=== PATIENT | male | born 1945 | race Caucasian/White ===

== ENCOUNTER 2020-05-23 10:00 | Outpatient (REF) | payer MEDICARE, SELFPAY ==
[2020-05-23 13:37] LABS: MANUAL DIFF FLAG NO
[2020-05-23 13:41] LABS: Basophils Percent Auto 0.4 % (0-2); Eosinophils Absolute Auto 0.3 X10*3/uL (0.0-0.4); Eosinophils Percent Auto 3.4 % (0-4); Hemoglobin 11.7 g/dl (14.0-18.0); Imm Gran Abs Auto 0.04 X10*3/uL (0.00-0.03); Imm Gran Pct Auto 0.5 % (0.0-0.4); Lymphocytes Absolute Auto 1.6 X10*3/uL (1.2-4.9); Lymphocytes Percent Auto 19.7 % (20-40); Mean Corpuscular HGB Conc 31.6 g/dl (31.0-36.0); Mean Corpuscular Hemoglobin 30.2 pg (27.0-33.0); Mean Corpuscular Volume 95.4 fL (80-98); Mean Platelet Volume 10.2 fL (9.4-12.4); Monocytes Absolute Auto 0.8 X10*3/uL (0.1-1.2); Monocytes Percent Auto 10.3 % (2-11); Neutrophils Absolute Auto 5.2 X10*3/uL (2.0-8.3); Neutrophils Percent Auto 65.7 % (45-73); Platelet Count 236 X10*3/uL (160-400); Red Blood Count 3.88 X10*6/uL (4.60-5.80); Red Cell Distribution Width 12.8 % (11.0-16.0)
[2020-05-23 13:44] LABS: Glucose Urine UA NEG (NEG); Leukocyte Esterase Urine NEG (NEG); Nitrite Urine NEG (NEG); Urine Blood NEG (NEG); Urine Ketones NEG (NEG); Urine Protein NEG (NEG-TRACE)
[2020-05-23 13:45] LABS: Appearance Urine CLEAR; Color Urine YELLOW
[2020-05-23 14:24] LABS: Alanine Aminotransferase 18 U/L (0-40); Albumin Level 4.1 g/dL (3.5-5.0); Alkaline Phosphatase 79 U/L (39-117); Anion Gap 13 (12-20); Aspartate Amino Transferase 16 U/L (5-37); Bilirubin Total < 0.2 mg/dL (0.0-1.0); Blood Urea Nitrogen 33 mg/dL (9-16); Calcium 9.1 mg/dL (8.4-10.2); Carbon Dioxide 23 mmol/L (22-29); Chloride 108 mmol/L (96-108); Cholesterol 154 mg/dL; Estimated Glomerular Filt Rate 46; Glucose Fasting 117 mg/dL (60-99); HDL Cholesterol 49 mg/dL; LDL Cholesterol Calculated 92 mg/dl; Potassium 5.1 mmol/l (3.3-5.1); Sodium 139 mmol/L (135-145); Total Protein 7.6 g/dL (6.5-8.0); Triglycerides 69 mg/dL
[2020-05-23 14:29] LABS: Prostate Specific Antigen Scr 0.74 ng/mL (<0.05-4.0)
== END 2020-05-23 10:01 | disposition home or self-care (01) ==
LOC: HO.10HDL 10:00
PROVIDERS: PCP Internal Medicine; Visit Provider Internal Medicine
DX: E78.00 Pure hypercholesterolemia, unspecified (principal); I12.9 Hypertensive chronic kidney disease with stage 1 through stage 4 chronic kidney disease, or unspecified chronic kidney disease; N18.9 Chronic kidney disease, unspecified; I48.0 Paroxysmal atrial fibrillation; I77.9 Disorder of arteries and arterioles, unspecified
CPT/HCPCS: 36415; 80053; 80061; 81003; 84153; 85025

== ENCOUNTER 2020-06-13 11:41 | Outpatient (REF) | payer MEDICARE, SELFPAY | END 2020-06-13 11:42 | disposition home or self-care (01) | LOC: HO.LAB 11:41 | PROVIDERS: Visit Provider Internal Medicine | DX: Z20.828 Contact with and (suspected) exposure to other viral communicable diseases (principal) | CPT/HCPCS: C9803; U0003 ==

== ENCOUNTER 2020-06-18 14:40 | Outpatient (REF) | payer MEDICARE, SELFPAY | END 2020-06-18 14:41 | disposition home or self-care (01) | LOC: HO.LNP 14:40 | PROVIDERS: Visit Provider Internal Medicine | DX: Z20.828 Contact with and (suspected) exposure to other viral communicable diseases (principal) | CPT/HCPCS: U0003 ==

== ENCOUNTER 2020-08-16 11:59 | Outpatient (REF) | payer MEDICARE, SELFPAY ==
[2020-08-16 12:58] LABS: MANUAL DIFF FLAG NO
[2020-08-16 13:04] LABS: Red Blood Count 4.07 X10*6/uL (4.60-5.80); White Blood Count 6.6 X10*3/uL (4.8-10.8)
[2020-08-16 13:05] LABS: Basophils Percent Auto 0.5 % (0-2); Eosinophils Absolute Auto 0.2 X10*3/uL (0.0-0.4); Eosinophils Percent Auto 3.5 % (0-4); Hematocrit 38.8 % (42-52); Hemoglobin 12.5 g/dl (14.0-18.0); Imm Gran Abs Auto 0.03 X10*3/uL (0.00-0.03); Imm Gran Pct Auto 0.5 % (0.0-0.4); Lymphocytes Absolute Auto 1.5 X10*3/uL (1.2-4.9); Lymphocytes Percent Auto 22.4 % (20-40); Mean Corpuscular HGB Conc 32.2 g/dl (31.0-36.0); Mean Corpuscular Hemoglobin 30.7 pg (27.0-33.0); Mean Corpuscular Volume 95.3 fL (80-98); Mean Platelet Volume 10.2 fL (9.4-12.4); Monocytes Absolute Auto 0.8 X10*3/uL (0.1-1.2); Monocytes Percent Auto 11.8 % (2-11); Neutrophils Absolute Auto 4.1 X10*3/uL (2.0-8.3); Neutrophils Percent Auto 61.3 % (45-73); Platelet Count 190 X10*3/uL (160-400); Red Cell Distribution Width 14.2 % (11.0-16.0)
[2020-08-16 13:32] LABS: Anion Gap 13 (12-20); Blood Urea Nitrogen 30 mg/dL (9-16); Calcium 8.7 mg/dL (8.4-10.2); Carbon Dioxide 22 mmol/L (22-29); Chloride 110 mmol/L (96-108); Estimated Glomerular Filt Rate 46; Glucose Random 106 mg/dL (60-115); Iron 76 mcg/dL (45-160); Percent Iron Saturation 27 % (15-50); Potassium 4.6 mmol/L (3.3-5.1); Sodium 140 mmol/L (135-145); Total Iron Binding Capacity 286 mcg/dL (228-428); Unsaturated Iron Binding 210 ug/dL
== END 2020-08-16 12:00 | disposition home or self-care (01) ==
LOC: HO.10HDL 11:59
PROVIDERS: Visit Provider Internal Medicine
DX: D64.9 Anemia, unspecified (principal); I73.9 Peripheral vascular disease, unspecified; I12.9 Hypertensive chronic kidney disease with stage 1 through stage 4 chronic kidney disease, or unspecified chronic kidney disease; N18.9 Chronic kidney disease, unspecified; K21.9 Gastro-esophageal reflux disease without esophagitis
CPT/HCPCS: 36415; 80048; 83540; 85025

== ENCOUNTER 2020-08-23 10:12 | Outpatient (REF) | payer MEDICARE, SELFPAY ==
[2020-08-23 13:54] LABS: MANUAL DIFF FLAG NO
[2020-08-23 14:03] LABS: Basophils Absolute Auto 0.1 X10*3/uL (0.0-0.2); Basophils Percent Auto 0.7 % (0-2); Eosinophils Absolute Auto 0.2 X10*3/uL (0.0-0.4); Eosinophils Percent Auto 3.4 % (0-4); Hematocrit 38.8 % (42-52); Hemoglobin 12.4 g/dl (14.0-18.0); Imm Gran Abs Auto 0.03 X10*3/uL (0.00-0.03); Imm Gran Pct Auto 0.4 % (0.0-0.4); Lymphocytes Absolute Auto 1.6 X10*3/uL (1.2-4.9); Lymphocytes Percent Auto 24.5 % (20-40); Mean Corpuscular Hemoglobin 30.2 pg (27.0-33.0); Mean Corpuscular Volume 94.6 fL (80-98); Mean Platelet Volume 10.8 fL (9.4-12.4); Monocytes Absolute Auto 0.8 X10*3/uL (0.1-1.2); Monocytes Percent Auto 12.6 % (2-11); Neutrophils Absolute Auto 3.9 X10*3/uL (2.0-8.3); Neutrophils Percent Auto 58.4 % (45-73); Platelet Count 184 X10*3/uL (160-400); Red Cell Distribution Width 13.9 % (11.0-16.0); White Blood Count 6.7 X10*3/uL (4.8-10.8)
[2020-08-23 14:06] LABS: Estimated Average Glucose 111 mg/dL; Hemoglobin A1c % 5.5 %
[2020-08-23 14:26] LABS: Anion Gap 12 (12-20); Blood Urea Nitrogen 34 mg/dL (9-16); Calcium 9.1 mg/dL (8.4-10.2); Carbon Dioxide 24 mmol/L (22-29); Chloride 108 mmol/L (96-108); Estimated Glomerular Filt Rate 45; Glucose Random 86 mg/dL (60-115); Iron 74 mcg/dL (45-160); Percent Iron Saturation 25 % (15-50); Potassium 4.8 mmol/L (3.3-5.1); Sodium 139 mmol/L (135-145); Total Iron Binding Capacity 292 mcg/dL (228-428); Unsaturated Iron Binding 218 ug/dL
== END 2020-08-23 10:13 | disposition home or self-care (01) ==
LOC: HO.10HDL 10:12
PROVIDERS: Visit Provider Internal Medicine
DX: I10 Essential (primary) hypertension (principal); N18.9 Chronic kidney disease, unspecified; D64.9 Anemia, unspecified; R73.03 Prediabetes
CPT/HCPCS: 36415; 80048; 83036; 83540; 85025

== ENCOUNTER 2020-12-14 12:47 | Outpatient (REF) | payer MEDICARE, SELFPAY ==
--- NOTE | ~2020-12-14 | XR_ITS ---
EXAMINATION: XR SHOULDER, LEFT CLINICAL INFORMATION: Left shoulder pain. COMPARISON: None TECHNIQUE: AP external rotation, Grashey, scapular Y, and axillary views of the left shoulder. FINDINGS: [id number] osteoarthritis of the acromioclavicular joint manifested by subchondral cyst and some capsular calcification or ossification. Glenohumeral joint normal. Surrounding bone and soft tissues unremarkable. XR/XR shoulder LT min 2V IMPRESSION: Mild degenerative changes of the acromioclavicular joint.
[2020-12-14 13:30] LABS: MANUAL DIFF FLAG NO
[2020-12-14 13:36] LABS: Basophils Percent Auto 0.4 % (0-2); Eosinophils Absolute Auto 0.2 X10*3/uL (0.0-0.4); Eosinophils Percent Auto 2.2 % (0-4); Hematocrit 38.2 % (42-52); Hemoglobin 12.4 g/dl (14.0-18.0); Imm Gran Abs Auto 0.02 X10*3/uL (0.00-0.03); Imm Gran Pct Auto 0.3 % (0.0-0.4); Lymphocytes Absolute Auto 1.5 X10*3/uL (1.2-4.9); Lymphocytes Percent Auto 21.8 % (20-40); Mean Corpuscular HGB Conc 32.5 g/dl (31.0-36.0); Mean Corpuscular Hemoglobin 30.5 pg (27.0-33.0); Mean Corpuscular Volume 93.9 fL (80-98); Monocytes Absolute Auto 0.8 X10*3/uL (0.1-1.2); Monocytes Percent Auto 11.8 % (2-11); Neutrophils Absolute Auto 4.3 X10*3/uL (2.0-8.3); Neutrophils Percent Auto 63.5 % (45-73); Platelet Count 188 X10*3/uL (160-400); Red Blood Count 4.07 X10*6/uL (4.60-5.80); Red Cell Distribution Width 12.9 % (11.0-16.0); White Blood Count 6.8 X10*3/uL (4.8-10.8)
[2020-12-14 13:51] LABS: Alanine Aminotransferase 14 U/L (0-40); Albumin Level 4.3 g/dL (3.5-5.0); Alkaline Phosphatase 75 U/L (39-117); Anion Gap 15 (12-20); Aspartate Amino Transferase 18 U/L (5-37); Bilirubin Total 0.7 mg/dL (0.0-1.0); Blood Urea Nitrogen 23 mg/dL (9-16); Calcium 9.7 mg/dL (8.4-10.2); Carbon Dioxide 24 mmol/L (22-29); Chloride 108 mmol/L (96-108); Estimated Glomerular Filt Rate 48; Glucose Random 124 mg/dL (60-115); Iron 65 mcg/dL (45-160); Percent Iron Saturation 22 % (15-50); Potassium 4.8 mmol/L (3.3-5.1); Sodium 142 mmol/L (135-145); Total Iron Binding Capacity 293 mcg/dL (228-428); Total Protein 8.1 g/dL (6.5-8.0); Unsaturated Iron Binding 228 ug/dL
== END 2020-12-14 12:48 | disposition home or self-care (01) ==
LOC: HO.LAB 12:47
PROVIDERS: PCP Internal Medicine; Visit Provider Internal Medicine
DX: M25.512 Pain in left shoulder (principal); D64.9 Anemia, unspecified; I73.9 Peripheral vascular disease, unspecified; I12.9 Hypertensive chronic kidney disease with stage 1 through stage 4 chronic kidney disease, or unspecified chronic kidney disease; N18.9 Chronic kidney disease, unspecified
CPT/HCPCS: 36415; 73030; 80053; 83540; 85025

== ENCOUNTER 2021-03-15 13:55 | Outpatient (REF) | payer MEDICARE, SELFPAY ==
[2021-03-15 15:11] LABS: Anion Gap 13 (12-20); Blood Urea Nitrogen 23 mg/dL (9-16); C Reactive Protein 5.97 mg/dL (< or = 0.50); Calcium 10.2 mg/dL (8.4-10.2); Carbon Dioxide 25 mmol/L (22-29); Chloride 107 mmol/L (96-108); Estimated Glomerular Filt Rate 54; Glucose Random 103 mg/dL (60-115); Potassium 5.1 mmol/L (3.3-5.1); Sodium 140 mmol/L (135-145)
[2021-03-17 05:32] LABS: Lyme Blot 8.14 index
[2021-03-17 13:01] LABS: Lyme Abs Screen POSITIVE
[2021-03-18 19:32] LABS: 18 KD (IgG) Band REACTIVE; 23 KD (IgG) Band REACTIVE; 23 KD (IgM) Band REACTIVE; 28 KD (IgG) Band REACTIVE; 30 KD (IgG) Band REACTIVE; 39 KD (IgM) Band NON-REACTIVE; 41 KD (IgM) Band REACTIVE; 45 KD (IgG) Band REACTIVE; 58 KD (IgG) Band REACTIVE; 66 KD (IgG) Band REACTIVE; 93 KD (IgG) Band REACTIVE; Lyme IgG Blot Interp POSITIVE (NEGATIVE); Lyme IgM Blot Interp POSITIVE (NEGATIVE)
== END 2021-03-15 13:56 | disposition home or self-care (01) ==
LOC: HO.LAB 13:55
PROVIDERS: PCP Internal Medicine; Visit Provider Internal Medicine
DX: I12.9 Hypertensive chronic kidney disease with stage 1 through stage 4 chronic kidney disease, or unspecified chronic kidney disease (principal); N18.9 Chronic kidney disease, unspecified; T14.8XXA Other injury of unspecified body region, initial encounter; W57.XXXA Bitten or stung by nonvenomous insect and other nonvenomous arthropods, initial encounter; Y93.9 Activity, unspecified; Y92.9 Unspecified place or not applicable; Y99.9 Unspecified external cause status
CPT/HCPCS: 36415; 80048; 86140; 86617; 86618

== ENCOUNTER 2021-04-24 13:30 | Outpatient (REF) | payer MEDICARE, SELFPAY ==
--- NOTE | ~2021-04-24 | XR_ITS ---
EXAMINATION: XR LEFT KNEE XR RIGHT KNEE CLINICAL INFORMATION: Left knee pain. COMPARISON: None TECHNIQUE: Upright frontal views of both knees and lateral and patellofemoral views of the left knee were obtained. FINDINGS: Right knee: The single upright frontal view of the right knee shows satisfactory bony alignment, evidence of chondrocalcinosis and no evidence of any osteophyte formation. Extensive atherosclerotic femoral popliteal and tibial artery is present. Otherwise soft tissues are unremarkable. Left knee: 3 views of the left knee shows satisfactory bony alignment and intact cortices. Minimal asymmetric decreased joint space is noted at the medial compartment, consistent with mild osteoarthrosis. Small joint effusion. Patella femoral joint is unremarkable. Significant atherosclerotic calcific disease is present involving the femoral popliteal and tibial arteries. XR/XR knee LT 2V IMPRESSION: 1. The single upright frontal view of the right knee shows chondrocalcinosis. 2. 3 views of the left knee shows mild medial compartmental osteoarthrosis and small joint effusion. 2. Evidence of significant calcific atherosclerotic disease involving bilateral femoral popliteal and tibial arteries.
--- NOTE | ~2021-04-24 | XR_ITS ---
EXAMINATION: XR LEFT KNEE XR RIGHT KNEE CLINICAL INFORMATION: Left knee pain. COMPARISON: None TECHNIQUE: Upright frontal views of both knees and lateral and patellofemoral views of the left knee were obtained. FINDINGS: Right knee: The single upright frontal view of the right knee shows satisfactory bony alignment, evidence of chondrocalcinosis and no evidence of any osteophyte formation. Extensive atherosclerotic femoral popliteal and tibial artery is present. Otherwise soft tissues are unremarkable. Left knee: 3 views of the left knee shows satisfactory bony alignment and intact cortices. Minimal asymmetric decreased joint space is noted at the medial compartment, consistent with mild osteoarthrosis. Small joint effusion. Patella femoral joint is unremarkable. Significant atherosclerotic calcific disease is present involving the femoral popliteal and tibial arteries. XR/XR knee standing BI IMPRESSION: 1. The single upright frontal view of the right knee shows chondrocalcinosis. 2. 3 views of the left knee shows mild medial compartmental osteoarthrosis and small joint effusion. 2. Evidence of significant calcific atherosclerotic disease involving bilateral femoral popliteal and tibial arteries.
== END 2021-04-24 13:31 | disposition home or self-care (01) ==
LOC: HO.HOSX 13:30
PROVIDERS: Visit Provider Physician Assistant
DX: M17.12 Unilateral primary osteoarthritis, left knee (principal); M25.561 Pain in right knee
CPT/HCPCS: 20610; 73560; 73565; 99202; J1040

== ENCOUNTER 2021-06-10 10:38 | Outpatient (REF) | payer MEDICARE, SELFPAY ==
[2021-06-10 11:42] LABS: Influenza A PCR NEGATIVE (Negative); Influenza B PCR NEGATIVE (Negative); Resp Syncy Virus RNA Qual PCR NEGATIVE (Negative); SARS COV2 PCR INHOUSE NEGATIVE (Negative)
== END 2021-06-10 10:39 | disposition home or self-care (01) ==
LOC: HO.LNP 10:38
PROVIDERS: Visit Provider Internal Medicine
DX: Z20.822 Contact with and (suspected) exposure to COVID-19 (principal)
CPT/HCPCS: 0241U

== ENCOUNTER 2022-05-06 11:28 | Outpatient (REF) | payer MEDICARE, SELFPAY ==
[2022-05-06 13:32] LABS: MANUAL DIFF FLAG NO
[2022-05-06 13:34] LABS: Basophils Absolute Auto 0.1 X10*3/uL (0.0-0.2); Basophils Percent Auto 0.9 % (0-2); Eosinophils Absolute Auto 0.3 X10*3/uL (0.0-0.4); Eosinophils Percent Auto 4.6 % (0-4); Hematocrit 38.8 % (42.0-52.0); Hemoglobin 12.5 g/dl (14.0-18.0); Imm Gran Abs Auto 0.02 X10*3/uL (0.00-0.03); Imm Gran Pct Auto 0.3 % (0.0-0.4); Lymphocytes Percent Auto 30.2 % (20-40); Mean Corpuscular HGB Conc 32.2 g/dl (31.0-36.0); Mean Corpuscular Hemoglobin 30.4 pg (27.0-33.0); Mean Corpuscular Volume 94.4 fL (80.0-98.0); Mean Platelet Volume 10.6 fL (9.4-12.4); Monocytes Absolute Auto 0.8 X10*3/uL (0.1-1.2); Monocytes Percent Auto 11.6 % (2-11); Neutrophils Absolute Auto 3.4 x10*3/uL (2.0-8.3); Neutrophils Percent Auto 52.4 % (45-73); Platelet Count 199 X10*3/uL (160-400); Red Blood Count 4.11 X10*6/uL (4.60-5.80); Red Cell Distribution Width 12.7 % (11.0-16.0); White Blood Count 6.5 X10*3/uL (4.8-10.8)
[2022-05-06 14:09] LABS: Alanine Aminotransferase 26 U/L (0-40); Albumin Level 4.1 g/dL (3.5-5.0); Alkaline Phosphatase 63 U/L (39-117); Anion Gap 13 (12-20); Aspartate Amino Transferase 21 U/L (5-37); Bilirubin Total 0.6 mg/dL (0.0-1.0); Blood Urea Nitrogen 24 mg/dL (9-16); Calcium 9.3 mg/dL (8.4-10.2); Carbon Dioxide 26 mmol/L (22-29); Chloride 107 mmol/L (96-108); Cholesterol 150 mg/dL; Estimated Glomerular Filt Rate 49; Glucose Fasting 95 mg/dL (60-99); HDL Cholesterol 51 mg/dL; LDL Cholesterol Calculated 77 mg/dl; Potassium 4.7 mmol/L (3.3-5.1); Prostate Specific Antigen Scr 0.73 ng/mL (<0.05-4.0); Sodium 141 mmol/L (135-145); Total Protein 6.8 g/dL (6.5-8.0); Triglycerides 110 mg/dL
== END 2022-05-06 11:29 | disposition home or self-care (01) ==
LOC: HO.10HDL 11:28
PROVIDERS: Visit Provider Internal Medicine
DX: Z12.5 Encounter for screening for malignant neoplasm of prostate (principal); I12.9 Hypertensive chronic kidney disease with stage 1 through stage 4 chronic kidney disease, or unspecified chronic kidney disease; N18.9 Chronic kidney disease, unspecified; I48.0 Paroxysmal atrial fibrillation; E78.00 Pure hypercholesterolemia, unspecified
CPT/HCPCS: 36415; 80053; 80061; 84153; 85025

== ENCOUNTER → 2022-09-17 13:07 | Outpatient (REF) | payer MEDICARE, SELFPAY ==
[2022-09-17 13:18] LABS: MANUAL DIFF FLAG NO
[2022-09-17 13:38] LABS: Basophils Percent Auto 0.5 % (0-2); Eosinophils Absolute Auto 0.2 X10*3/uL (0.0-0.4); Eosinophils Percent Auto 2.5 % (0-4); Hematocrit 43.9 % (42.0-52.0); Hemoglobin 14.1 g/dl (14.0-18.0); Imm Gran Abs Auto 0.02 X10*3/uL (0.00-0.03); Imm Gran Pct Auto 0.3 % (0.0-0.4); Lymphocytes Absolute Auto 1.9 X10*3/uL (1.2-4.9); Lymphocytes Percent Auto 25.6 % (20-40); Mean Corpuscular HGB Conc 32.1 g/dl (31.0-36.0); Mean Corpuscular Hemoglobin 30.4 pg (27.0-33.0); Mean Corpuscular Volume 94.6 fL (80.0-98.0); Mean Platelet Volume 10.3 fL (9.4-12.4); Monocytes Absolute Auto 0.9 X10*3/uL (0.1-1.2); Monocytes Percent Auto 11.7 % (2-11); Neutrophils Absolute Auto 4.5 x10*3/uL (2.0-8.3); Neutrophils Percent Auto 59.4 % (45-73); Platelet Count 165 X10*3/uL (160-400); Red Blood Count 4.64 X10*6/uL (4.60-5.80); Red Cell Distribution Width 13.5 % (11.0-16.0); White Blood Count 7.5 X10*3/uL (4.8-10.8)
--- NOTE | 2022-09-17 13:42 | CA_ITS ---
Transthoracic Echocardiogram Patient (Last, First, Middle): Dom Griffin A Gender: Male Date of : 1945 Age: 77 Procedure Date: 09/17/2022 Procedure Type: Transthoracic Echocardiogram Location: OP Height: 177.8 cm Weight: 81.65 kg BSA: 2.00 m2 Heart Rate: 67 bpm BP: 132 / 70 mmHg Dual Rate Dealer: SB Referring MD: Orlando Muir MD Tool Pusher: Terry Max MD Symptoms: I48.20 CHRONIC AFIB Study Quality: Fair but adequate ECG Rhythm: Atrial Fibrillation Conclusions: - 1. Low normal LV ejection fraction 50-55% 2. Mildly dilated left atrium 3. Mild aortic stenosis 4. Normal RV systolic pressure 5. No gross pericardial effusion Findings Left Ventricle Normal left ventricular cavity size. There is normal left ventricular wall thickness. The left ventricular systolic function is low normal. The visually estimated ejection fraction is between 50-55%. Diastolic function is indeterminate on the basis of available data. Right Ventricle Normal right ventricular cavity size and systolic function. Atria The left atrium is mildly dilated. There is lipomatous hypertrophy of the interatrial septum. Interatrial shunt cannot be excluded. The right atrium is normal in size. Aortic Valve There is mild calcification of the aortic valve. There is mild thickening of the aortic valve. There is mild aortic valve stenosis. There is no aortic valve regurgitation. Mitral Valve There is mild anterior and posterior mitral leaflet thickening. There is mild mitral annular calcification. There is mild mitral valve regurgitation. There is no mitral valve stenosis. Pulmonic Valve The pulmonic valve is likely normal. There is trace to mild pulmonic valve regurgitation. Tricuspid Valve Normal tricuspid valve structure. There is trace tricuspid valve regurgitation. The right ventricular systolic pressure is normal. The right ventricular systolic pressure is 31 mmHg. Normal right atrial pressure. There is no evidence of pulmonary hypertension. Great Vessels All visible segments of the aorta are normal in size. The pulmonary artery was not well visualized. Venous The inferior vena cava is normal in size and collapses greater than 50% with inspiration. Pericardium/Pleural There is no evidence of pericardial effusion. Prior Study Comparison Changes noted compared to prior study dated: 03/14/2019. LV systolic function is depressed. Mild aortic stenosis is present Measurements 2D Linear Measurements IVSd: 1.12 0.6-0.9/0.6-1.0 cm LVIDd: 4.82 3.9-5.3/4.2-5.9 cm LVIDd Index: 2.41 2.4-3.2/2.2-3.1 cm/m2 LVIDs: 3.46 2.0-3.6 cm LVPWd: 1.11 0.7-1.1 cm LA Diam: 3.80 2.7-3.8/3.0-4.0 cm LAIDs Index: 1.90 1.5-2.3 cm/m2 LV Mass: 247.96 67-162/88-224 g LV Mass Index: 123.98 43-95/49-115 g/m2 LVOT Diam: 2.10 3.0+(-)1.3 cm 2D Systolic Function EF 4C: 44.90 >55% EF 2C: 54.30 >55% EF BiP: 49.80 >55% Mitral Valve MV Pk E: 1.28 Aortic Valve AoV Pk Juve: 1.50 AoV Mn Juve: 1.03 AoV VTI: 0.29 AoV Pk Grad: 9.00 Aov Mn Grad: 5.00 CESAR Cont.VTI: 2.19 LVOT LVOT Pk Juve: 0.89 LVOT Mn Juve: 0.66 LVOT VTI: 0.18 LVOT Pk Grad: 3.00 LVOT Mn Grad: 2.00 LVOT Diam: 2.10 LVOT Area: 3.46 Diastolic Function MV Pk E: 1.28 Right Ventricle TAPSE (mm): 15.60 TVS' Juve: 9.55 Tricuspid Valve TR Pk Juve: 2.65 TR Pk Grad: 28.00 RA Press: 3.00 RVSP: 31.00 Great Vessels Aorta Sinus of Valsalva: 3.30 2.0-3.5 cm Ao Asc: 3.30 2.1-3.4 cm Pulmonary Valve PV Pk Juve: 0.64 Peak PV Grad: 2.00 Updated in Other Vendor System with Status of Final Terry Max MD electronically signed on 09/17/2022 3:49:35 PM with status of Final
[2022-09-17 14:16] LABS: Alanine Aminotransferase 30 U/L (0-40); Albumin Level 4.3 g/dL (3.5-5.0); Alkaline Phosphatase 86 U/L (39-117); Anion Gap 12 (12-20); Aspartate Amino Transferase 25 U/L (5-37); Bilirubin Total 1.3 mg/dL (0.0-1.0); Blood Urea Nitrogen 28 mg/dL (9-16); Calcium 9.5 mg/dL (8.4-10.2); Carbon Dioxide 27 mmol/L (22-29); Chloride 107 mmol/L (96-108); Estimated Glomerular Filt Rate 48; Glucose Random 95 mg/dL (60-115); Magnesium 2.1 mg/dL (1.6-2.6); Potassium 4.4 mmol/L (3.3-5.1); Sodium 142 mmol/L (135-145); Total Protein 6.9 g/dL (6.5-8.0)
[2022-09-17 14:31] LABS: Free T4 (Free Thyroxine) 1.07 ng/dL (0.71-1.85); Thyroid Stimulating Hormone 1.22 uIU/mL (0.32-4.0)
== END ==
LOC: HO.CARD 13:07
PROVIDERS: PCP Internal Medicine; Visit Provider Internal Medicine
DX: I73.9 Peripheral vascular disease, unspecified (principal); N18.9 Chronic kidney disease, unspecified; I48.20 Chronic atrial fibrillation, unspecified
CPT/HCPCS: 36415; 80053; 82550; 83735; 84439; 84443; 85025; 93306

== ENCOUNTER → 2022-11-24 13:58 | Outpatient (BNVA) | payer MEDICARE, SELFPAY | PROVIDERS: PCP Internal Medicine; Referring Provider Internal Medicine; Visit Provider Internal Medicine Cardiovascular Disease | DX: I48.19 Other persistent atrial fibrillation (principal); I35.0 Nonrheumatic aortic (valve) stenosis; I10 Essential (primary) hypertension | CPT/HCPCS: 93005; 99202 ==

== ENCOUNTER → 2022-12-08 14:45 | Outpatient (REF) | payer MEDICARE, SELFPAY | LOC: HO.CARD 14:45 | PROVIDERS: PCP Internal Medicine; Visit Provider Internal Medicine Cardiovascular Disease | DX: I48.19 Other persistent atrial fibrillation (principal) | CPT/HCPCS: 93242 ==

== ENCOUNTER 2023-01-07 14:50 | Outpatient (REF) | payer MEDICARE, SELFPAY ==
[2023-01-07 15:04] LABS: MANUAL DIFF FLAG NO
[2023-01-07 15:57] LABS: Basophils Percent Auto 0.6 % (0-2); Eosinophils Absolute Auto 0.2 X10*3/uL (0.0-0.4); Eosinophils Percent Auto 2.9 % (0-4); Hematocrit 43.7 % (42.0-52.0); Hemoglobin 13.9 g/dl (14.0-18.0); Imm Gran Abs Auto 0.01 X10*3/uL (0.00-0.03); Imm Gran Pct Auto 0.1 % (0.0-0.4); Lymphocytes Percent Auto 27.7 % (20-40); Mean Corpuscular HGB Conc 31.8 g/dl (31.0-36.0); Mean Corpuscular Hemoglobin 30.3 pg (27.0-33.0); Mean Corpuscular Volume 95.2 fL (80.0-98.0); Mean Platelet Volume 10.7 fL (9.4-12.4); Monocytes Absolute Auto 0.8 X10*3/uL (0.1-1.2); Monocytes Percent Auto 11.4 % (2-11); Neutrophils Absolute Auto 4.1 x10*3/uL (2.0-8.3); Neutrophils Percent Auto 57.3 % (45-73); Platelet Count 172 X10*3/uL (160-400); Red Blood Count 4.59 X10*6/uL (4.60-5.80); Red Cell Distribution Width 13.8 % (11.0-16.0); White Blood Count 7.2 X10*3/uL (4.8-10.8)
[2023-01-07 17:48] LABS: Alanine Aminotransferase 26 U/L (0-40); Albumin Level 4.1 g/dL (3.5-5.0); Alkaline Phosphatase 72 U/L (39-117); Anion Gap 15 (12-20); Aspartate Amino Transferase 25 U/L (5-37); Bilirubin Total 0.8 mg/dL (0.0-1.0); Blood Urea Nitrogen 23 mg/dL (9-16); Calcium 9.6 mg/dL (8.4-10.2); Carbon Dioxide 22 mmol/L (22-29); Chloride 110 mmol/L (96-108); Estimated Glomerular Filt Rate 49; Glucose Random 85 mg/dL (60-115); Potassium 4.7 mmol/L (3.3-5.1); Sodium 142 mmol/L (135-145); Total Protein 7.2 g/dL (6.5-8.0)
== END 2023-01-07 14:51 | disposition home or self-care (01) ==
LOC: HO.LAB 14:50
PROVIDERS: PCP Internal Medicine; Visit Provider Internal Medicine
DX: I48.91 Unspecified atrial fibrillation (principal); I73.9 Peripheral vascular disease, unspecified; I12.9 Hypertensive chronic kidney disease with stage 1 through stage 4 chronic kidney disease, or unspecified chronic kidney disease; N18.9 Chronic kidney disease, unspecified
CPT/HCPCS: 36415; 80053; 85025

== ENCOUNTER 2023-02-23 08:57 | Outpatient (AMB) | payer MEDICARE, SELFPAY ==
--- NOTE | 2023-02-23 09:02 | A.OFFVIS_ITS ---
Intake Vital Signs 02/23/23 09:03 Height 5 ft 10 in Weight 185 lb 3.013 oz BMI 26.6 BP 116/74 Blood Pressure Location Lt brachial Position Sitting Pulse 72 Intake Visit Reasons: 3 month follow up Intake Note: 3 month follow-up c/o maybe being a little more tried Sulfuric Acid Plant Supervisor Required: No Allergies No Known Allergies Allergy (Verified 04/24/21 15:18) Medication List - Last Reconciled 02/23/23 by Terry Max MD amlodipine 5 mg PO DAILY apixaban (Eliquis) 5 mg PO ONCE cilostazol 100 mg PO BID metoprolol succinate ER 100 mg PO DAILY rosuvastatin (Crestor) 40 mg PO DAILY HPI HPI Comments History of Present Illness Details Dom comes for follow-up. He has been doing well. He denies any symptoms whatsoever. He said he continues to participate in his usual activity including golfing and dancing and denies any worsening symptoms although he said he might be more short of breath. However is not sure and says currently his life is not limited. Denies any prolonged palpitations irregular heartbeat. Denies any orthopnea, PND, leg edema. He is currently taking Eliquis but only taking once a day, switch from Xarelto due to cost issues. Denies any bleeding issues or neurologic events. Blood pressure is well controlled. [facility] Medical History Hyperlipidemia Peripheral vascular disease Persistent atrial fibrillation HTN (hypertension) Lyme disease Surgical History S/p bilateral carotid endarterectomy Social History Alcohol intake: never Patient Tobacco Use Status: Never used Tobacco Current occupational status: retired Review of Systems Const Denies chills, Denies fatigue, Denies fever(s), Denies frequent falls, Denies weakness, Denies weight gain and Denies weight loss ENT Denies dizziness Card Denies chest pain, Denies leg edema, Denies lightheadedness, Denies palpitations, Denies dyspnea, Denies dyspnea on exertion, Denies orthopnea and Denies other (loss of consciousness) Resp Denies cough, Denies dyspnea and Denies dyspnea on exertion GI Denies hematochezia and Denies change in stool character Musc Denies abnormal gait, Denies muscle weakness, Denies numbness, Denies radiating pain into limb and Denies tingling Neuro Denies Abnormal speech present, Denies abnormal gait, Denies dizziness, Denies frequent falls, Denies numbness, Denies tingling and Denies weakness Endo Denies fatigue and Denies palpitations Physical Exam Vital Signs: Last Vital Signs Pulse 72 02/23/23 09:03 BP 116/74 02/23/23 09:03 BMI result Body Mass Index 26.6 Const General: cooperative, comfortable, no acute distress, alert, awake and Physically active Nutritional Appearance: average body habitus Orientation/consciousness: patient oriented x3 Limitations: no limitations Neck Neck: Yes trachea midline, Yes supple and Yes no JVD Resp Effort & Inspection: normal respiratory effort Auscultation: clear to auscultation bilaterally Cardio Jugular venous distension: no JVD Palpation: normal PMI Rate: regular rate Rhythm: abnormal rhythm irregularly irregular Heart sounds: S1 normal heart sound present, S2 normal heart sound present, no click, no gallops and Murmur heart sound present systolic early Skin General skin exam: no rashes or lesions noted Neuro General: patient oriented x3 and no focal motor deficits Speech: No Abnormal speech present Extrem General: Yes no clubbing, cyanosis or edema Assessment & Plan Assessment & Plan (1) Persistent atrial fibrillation: Code(s): I48.19 - Other persistent atrial fibrillation Plan: Persistent atrial fibrillation in this elderly gentleman without any obvious symptoms. Rate is adequately controlled on current metoprolol therapy. We discussed again in details about rate control versus rhythm control approach. Given that he is in excellent shape and with good functionality we can pursue rhythm control approach to give him advantage in terms of prevention of future development of heart failure. However if he remains with no improvement in symptoms in sinus rhythm will then not pursue rhythm control approach in the future. This was discussed with him. Risks, benefits, alternatives to synchronized cardioversion was discussed. As he is currently taking in adequate dosing of Eliquis I have discussed with him to increase Eliquis to 5 mg b.i.d. and then pursue rhythm control approach in 4 weeks time. He understands and agrees. He wants to think about synchronized cardioversion do some more research which is reasonable. (2) Aortic stenosis: Code(s): I35.0 - Nonrheumatic aortic (valve) stenosis Plan: Aortic stenosis which is mild. No clinical symptoms related to it. Follow-up echocardiogram in November next year. Follow-up after that. Continue aggressive risk factor modification. Continue Eliquis therapy as prescribed. Continue aggressive risk factor modification with goal LDL less than 70 mg/dL. Will follow up in the clinic in 10-6 months time, sooner p.r.n.. Thank you for allowing me to partake in his care Coding Level of Care Code Est Pt Level 4 (27764) Diagnoses Persistent atrial fibrillation I48.19 Aortic stenosis I35.0
[2023-02-23 09:03] VITALS: BP 116/74; PULSE 72; BMI 26.6
== END 2023-02-23 09:26 | disposition home or self-care (01) ==
PROVIDERS: PCP Internal Medicine; Referring Provider Internal Medicine; Visit Provider Internal Medicine Cardiovascular Disease
DX: I48.19 Other persistent atrial fibrillation (principal); I35.0 Nonrheumatic aortic (valve) stenosis
CPT/HCPCS: 99214

== ENCOUNTER → 2023-02-23 08:57 | Outpatient (BNVA) | payer MEDICARE, SELFPAY | PROVIDERS: PCP Internal Medicine; Referring Provider Internal Medicine; Visit Provider Internal Medicine Cardiovascular Disease | DX: I48.19 Other persistent atrial fibrillation (principal); I35.0 Nonrheumatic aortic (valve) stenosis; Z79.01 Long term (current) use of anticoagulants; Z79.899 Other long term (current) drug therapy | CPT/HCPCS: 99212 ==

== ENCOUNTER → 2023-04-10 11:57 | Day surgery (SDC) | payer MEDICARE, SELFPAY ==
[2023-04-07 14:45] VITALS: BMI 26.5
--- NOTE | 2023-04-08 14:40 | HO.ANESPROP2 ---
HPI - Anesthesia Eval Consult details Narrative: 77yo M for Cardioversion Xarelto for afib PMFSH Active Problems Active Problems: All Active Problems (Updated 11/24/22 @ 14:14 by Terry Max MD) Aortic stenosis (Acute) Osteoarthritis of left knee (Acute) HTN (hypertension) (Acute) Persistent atrial fibrillation (Acute) Past Medical History Medical History Hyperlipidemia Peripheral vascular disease Persistent atrial fibrillation HTN (hypertension) Lyme disease Surgical History Surgical History (Updated 04/07/23 @ 14:45 by Adina Collier RN) History of lumbar laminectomy History of cervical discectomy H/O colonoscopy S/p bilateral carotid endarterectomy Social History Social History Are you a primary patient care technician to a significant other at home: No Do you presently have visiting nurse or other home services: No Alcohol intake: never Patient Tobacco Use Status: Former Tobacco user Quit Date: age 42 Tobacco use type: Cigarette Use of substances other than those prescribed or required for medical reasons: No Have you been hit, kicked, punched, or otherwise hurt by someone within the past year? If so, by whom?: No Are you DNR?: Yes Advance Directives Information Provided: Yes (will bring copy DOS) Advance Directives on File: No Recently lost weight without trying: No Eating poorly because of decreased appetite: No Nutrition Risks: Surgical patient >75years Poor oral hygiene: No (upper / lower denture) Current occupational status: retired Meds Allergies Allergy/AdvReac Type Severity Reaction Status Date / Time No Known Allergies Allergy Verified 04/24/21 15:18 Home Medications Medication Instructions Recorded Confirmed Last Taken Type cilostazol 100 mg tablet 100 mg PO BID 04/24/21 04/07/23 Unknown History metoprolol succinate 100 mg 100 mg PO QPM 04/24/21 04/07/23 Unknown History tablet,extended release 24 hr rosuvastatin 40 mg tablet (Crestor) 40 mg PO QPM 04/24/21 04/07/23 Unknown History amlodipine 5 mg tablet 5 mg PO QPM 11/24/22 04/07/23 Unknown History ascorbic acid (vitamin C) 500 mg 500 mg PO QAM 04/07/23 04/07/23 Unknown History tablet (Vitamin C) multivitamin 1 tab PO QAM 04/07/23 04/07/23 Unknown History omega 0-nww-kcz-fish oil 300 1 cap PO QAM 04/07/23 04/07/23 Unknown History mg-1,000 mg capsule (Fish Oil) rivaroxaban 15 mg tablet (Xarelto) 15 mg PO QPM 04/07/23 04/07/23 Unknown History Exam Exam Date and Time: April 08, 2023 1440 Height,Weight and Vital Signs: Height 5 ft 10 in Weight 83.915 kg Pertinent Lab Results Pertinent Lab Results: Laboratory Tests 01/07/23 15:03 WBC 7.2 Hgb 13.9 L Hct 43.7 Plt Count 172 Sodium 142 Potassium 4.7 Chloride 110 H Carbon Dioxide 22 BUN 23 H Creatinine 1.39 Narrative Narrative: EKG 11/2022 atrial fibrillation with controlled ventricular response with T-wave ECHO 09/2022 Conclusions: - 1. Low normal LV ejection fraction 50-55% 2. Mildly dilated left atrium 3. Mild aortic stenosis 4. Normal RV systolic pressure 5. No gross pericardial effusion Assessment and Plan Assessment Anesthesia Assessment: Chart Reviewed
[2023-04-10 12:17] VITALS: BP 169/94; PULSE 81; RESP 16; TEMP 36.1; O2SAT 100
--- NOTE | 2023-04-10 12:33 | PC.NURSE ---
Patient in preop. When asked by this nurse if he has been consistent with his Xarelto patient stated, I missed a few days a couple days ago due to running out of the medication . Dr. Max at bedside and made aware. Case postponed due to risks. Patient understands. Ride called.
== END ==
PROVIDERS: PCP Internal Medicine; Visit Provider Internal Medicine Cardiovascular Disease
DX: I48.19 Other persistent atrial fibrillation (principal); Z53.09 Procedure and treatment not carried out because of other contraindication; I10 Essential (primary) hypertension; Z79.01 Long term (current) use of anticoagulants; Z87.891 Personal history of nicotine dependence

== ENCOUNTER 2023-04-21 10:11 | Outpatient (REF) | payer MEDICARE, SELFPAY ==
[2023-04-21 11:17] LABS: MANUAL DIFF FLAG NO
[2023-04-21 11:31] LABS: Basophils Percent Auto 0.1 % (0-2); Eosinophils Percent Auto 0.2 % (0-4); Hematocrit 44.5 % (42.0-52.0); Hemoglobin 14.3 g/dl (14.0-18.0); Imm Gran Abs Auto 0.05 X10*3/uL (0.00-0.03); Imm Gran Pct Auto 0.5 % (0.0-0.4); Lymphocytes Absolute Auto 1.5 X10*3/uL (1.2-4.9); Lymphocytes Percent Auto 15.6 % (20-40); Mean Corpuscular HGB Conc 32.1 g/dl (31.0-36.0); Mean Corpuscular Hemoglobin 30.5 pg (27.0-33.0); Mean Corpuscular Volume 94.9 fL (80.0-98.0); Mean Platelet Volume 10.6 fL (9.4-12.4); Monocytes Absolute Auto 0.8 X10*3/uL (0.1-1.2); Monocytes Percent Auto 8.5 % (2-11); Neutrophils Absolute Auto 7.4 x10*3/uL (2.0-8.3); Neutrophils Percent Auto 75.1 % (45-73); Platelet Count 181 X10*3/uL (160-400); Red Blood Count 4.69 X10*6/uL (4.60-5.80); Red Cell Distribution Width 13.8 % (11.0-16.0); White Blood Count 9.9 X10*3/uL (4.8-10.8)
[2023-04-21 12:20] LABS: Alanine Aminotransferase 25 U/L (0-40); Albumin Level 4.2 g/dL (3.5-5.0); Alkaline Phosphatase 70 U/L (39-117); Anion Gap 13 (12-20); Aspartate Amino Transferase 22 U/L (5-37); Bilirubin Total 0.6 mg/dL (0.0-1.0); Blood Urea Nitrogen 23 mg/dL (9-16); Calcium 9.4 mg/dL (8.4-10.2); Carbon Dioxide 26 mmol/L (22-29); Chloride 108 mmol/L (96-108); Cholesterol 158 mg/dL (<200); Estimated Glomerular Filt Rate 50; Glucose Random 114 mg/dL (60-115); HDL Cholesterol 52 mg/dL (>40); LDL Cholesterol Calculated 88 mg/dL (<100); Potassium 4.3 mmol/L (3.3-5.1); Sodium 143 mmol/L (135-145); Total Protein 7.6 g/dL (6.5-8.0); Triglycerides 92 mg/dL (<150)
[2023-04-21 12:24] LABS: Prostate Specific Antigen Scr 0.65 ng/mL (<0.05-4.0)
== END 2023-04-21 10:12 | disposition home or self-care (01) ==
LOC: HO.WFDLDS 10:11
PROVIDERS: Visit Provider Internal Medicine
DX: I73.9 Peripheral vascular disease, unspecified (principal); E78.00 Pure hypercholesterolemia, unspecified; I12.9 Hypertensive chronic kidney disease with stage 1 through stage 4 chronic kidney disease, or unspecified chronic kidney disease; N18.9 Chronic kidney disease, unspecified; I48.91 Unspecified atrial fibrillation; Z12.5 Encounter for screening for malignant neoplasm of prostate
CPT/HCPCS: 36415; 80053; 80061; 84153; 85025

== ENCOUNTER 2023-05-13 10:02 | Day surgery (SDC) | payer MEDICARE, SELFPAY ==
[2023-05-13 10:09] VITALS: BMI 25.8
[2023-05-13 10:45] VITALS: BP 174/105; PULSE 72; RESP 16; TEMP 36.1; O2SAT 98
[2023-05-13] MEDS: Lactated Ringers 1,000 ML 100 ML IVCONT (10:48)
--- NOTE | 2023-05-13 10:50 | P.CONAN_ITS ---
Documented by User: Katt Lorenzana NP 05/12/23 09:55 HPI - Anesthesia Eval Consult details Narrative: 78yo M for Cardioversion Xarelto for afib (Previously cx'd DOS for missed xarelto doses) PMFSH Active Problems Active Problems: All Active Problems (Updated 11/24/22 @ 14:14 by Terry Max MD) Aortic stenosis (Acute) Osteoarthritis of left knee (Acute) HTN (hypertension) (Acute) Persistent atrial fibrillation (Acute) Past Medical History Medical History Hyperlipidemia Peripheral vascular disease Persistent atrial fibrillation HTN (hypertension) Lyme disease Surgical History Surgical History History of appendectomy History of lumbar laminectomy History of cervical discectomy H/O colonoscopy S/p bilateral carotid endarterectomy Social History Social History Are you a primary assistant child care teacher to a significant other at home: No Do you presently have visiting nurse or other home services: No Alcohol intake: never Patient Tobacco Use Status: Former Tobacco user Quit Date: 1987 Tobacco use type: Cigarette Use of substances other than those prescribed or required for medical reasons: No Are you DNR?: No Advance Directives: No Advance Directives Information Provided: Yes Current occupational status: retired [employer] Allergies Allergy/AdvReac Type Severity Reaction Status Date / Time No Known Allergies Allergy Verified 05/13/23 10:15 Home Medications Medication Instructions Recorded Confirmed Last Taken Type cilostazol 100 mg tablet 100 mg PO BID 04/24/21 04/10/23 Unknown History metoprolol succinate 100 mg 100 mg PO QPM 04/24/21 04/10/23 04/09/23 History tablet,extended release 24 hr rosuvastatin 40 mg tablet (Crestor) 40 mg PO QPM 04/24/21 04/10/23 Unknown History amlodipine 5 mg tablet 5 mg PO QPM 11/24/22 04/10/23 04/09/23 History ascorbic acid (vitamin C) 500 mg 500 mg PO QAM 04/07/23 04/10/23 Unknown History tablet (Vitamin C) multivitamin 1 tab PO QAM 04/07/23 04/10/23 Unknown History omega 8-qzw-gdg-fish oil 300 1 cap PO QAM 04/07/23 04/10/23 04/09/23 History mg-1,000 mg capsule (Fish Oil) rivaroxaban 15 mg tablet (Xarelto) 15 mg PO QPM 04/07/23 05/13/23 05/12/23 History Exam Pertinent Lab Results Pertinent Lab Results: Laboratory Tests 04/21/23 10:15 WBC 9.9 Hgb 14.3 Hct 44.5 Plt Count 181 Sodium 143 Potassium 4.3 Chloride 108 Carbon Dioxide 26 BUN 23 H Creatinine 1.37 Narrative Narrative: EKG 11/2022 atrial fibrillation with controlled ventricular response with T-wave ECHO 09/2022 Conclusions: - 1. Low normal LV ejection fraction 50-55% 2. Mildly dilated left atrium 3. Mild aortic stenosis 4. Normal RV systolic pressure 5. No gross pericardial effusion Assessment and Plan Assessment Anesthesia Assessment: Chart Reviewed Documented by User: Kendy Becerril DO 05/13/23 10:54 PMFSH Past Medical History Medical History Hyperlipidemia Peripheral vascular disease Persistent atrial fibrillation HTN (hypertension) Lyme disease Family History Family history of problems with anesthesia: No Surgical History Surgical History History of appendectomy History of lumbar laminectomy History of cervical discectomy H/O colonoscopy S/p bilateral carotid endarterectomy History of Problems with Anesthesia: No Social History Social History Are you a primary assistant child care teacher to a significant other at home: No Do you presently have visiting nurse or other home services: No Alcohol intake: never Patient Tobacco Use Status: Former Tobacco user Quit Date: 1987 Tobacco use type: Cigarette Use of substances other than those prescribed or required for medical reasons: No Are you DNR?: No Advance Directives: No Advance Directives Information Provided: Yes Current occupational status: retired Meds Allergies Allergy/AdvReac Type Severity Reaction Status Date / Time No Known Allergies Allergy Verified 05/13/23 10:15 Home Medications Medication Instructions Recorded Confirmed Last Taken Type cilostazol 100 mg tablet 100 mg PO BID 04/24/21 04/10/23 Unknown History metoprolol succinate 100 mg 100 mg PO QPM 04/24/21 04/10/23 04/09/23 History tablet,extended release 24 hr rosuvastatin 40 mg tablet (Crestor) 40 mg PO QPM 04/24/21 04/10/23 Unknown History amlodipine 5 mg tablet 5 mg PO QPM 11/24/22 04/10/23 04/09/23 History ascorbic acid (vitamin C) 500 mg 500 mg PO QAM 04/07/23 04/10/23 Unknown History tablet (Vitamin C) multivitamin 1 tab PO QAM 04/07/23 04/10/23 Unknown History omega 6-dxj-fvp-fish oil 300 1 cap PO QAM 04/07/23 04/10/23 04/09/23 History mg-1,000 mg capsule (Fish Oil) rivaroxaban 15 mg tablet (Xarelto) 15 mg PO QPM 04/07/23 05/13/23 05/12/23 History Exam Exam Date and Time: May 13, 2023 1050 Height,Weight and Vital Signs: Vital Signs Temperature 97.0 F 05/13/23 10:45 Pulse Rate 72 05/13/23 10:45 Respiratory Rate 16 05/13/23 10:45 Blood Pressure 174/105 H 05/13/23 10:45 Pulse Oximetry 98 05/13/23 10:45 Oxygen Delivery Method Room Air 05/13/23 10:45 Temperature 97.0 F 05/13/23 10:45 Pulse Rate 72 05/13/23 10:45 Respiratory Rate 16 05/13/23 10:45 Blood Pressure 174/105 H 05/13/23 10:45 Pulse Oximetry 98 05/13/23 10:45 Oxygen Delivery Method Room Air 05/13/23 10:45 Height 5 ft 10 in Weight 81.647 kg Airway Mallampati Class: II TM Dist: >3cm Neck ROM: Full Denture: Upper Partial: Lower Heart: S1S2 Lungs: CTAB Assessment and Plan Assessment Anesthesia Assessment: Anesthesia Plan Discussed and Chart Reviewed Final Anesthetic Review Family History of Problems with Anesthesia: No History of Problems with Anesthesia: No NPO: Yes ASA Class: III Final Preanesthetic Review: No Changes in Pt Med Stat, Meds/Allgs Chart Reviewed, Consent Obtained/Reviewed and Anes Risks/Benef Reviewed Patient Risk: Intermediate Procedure Risk: Low Anesthetic Plan Anesthetic Plan: MAC: and Agree w/ Assess. and Plan Disposition: Standard PACU
--- NOTE | 2023-05-13 11:01 | MHC.SHP ---
Pre-Procedural Eval Section A Date of Service: 05/13/23 The patient is an INPATIENT: No Changes since office visit: Yes Patient answered all questions; No Cold of Flu in the past 2 weeks, No New Medical Problems and No Changes in Medication The History & Physical has been completed within 30 days and I have reviewed it.: Yes Section B Chief Complaint: Other persistent atrial fibrillation Allergies: Allergies Allergy/AdvReac Type Severity Reaction Status Date / Time No Known Allergies Allergy Verified 05/13/23 10:15 Plan I have reviewed the history and physical and performed a pertinent physical examination on my patient. No changes have occurred unless specified. Time Spent With Patient Time: Total time managing care of this patient today ____ minutes.
--- NOTE | 2023-05-13 11:12 | ECG_ITS ---
Test Reason : post cardioversion Blood Pressure : / mmHG Vent. Rate : 049 BPM Atrial Rate : 049 BPM P-R Int : 204 ms QRS Dur : 094 ms QT Int : 468 ms P-R-T Axes : 070 029 015 degrees QTc Int : 422 ms Sinus bradycardia RSR' or QR pattern in V1 suggests right ventricular conduction delay Abnormal ECG No previous ECGs available Referred By: Terry Max Electronically Signed By:JOSE MARX MD
--- NOTE | 2023-05-13 11:13 | HO.CARDIVERS ---
Cardioversion Procedure Note Cardioversion Date of Procedure: Today Ordering Provider: Myself Performing Provider: Myself Indication for Procedure: Persistent atrial fibrillation Pre-Op Diagnosis: Same Post-Op Diagnosis: NSr Performed with Transesophageal Echo: No Consent: Verbal and Written consent was obtained from the patient before starting and confirming OAC use. The patient was made aware of the risk of synchronized cardioversion including benefits and alternatives Procedure: After consent obtained, cardioversion pads were placed in AP configuration pads were attached and the patient was sedated by the anesthesia team. Once adequate sedation achieved, patient was delivered 200J of synchonized energy in AP configuration Complications: None Impression: Successful conversion to NSR Recommendations: 1. 12 lead EKg 2. Continue OAC 3. Follow up after Holter
[2023-05-13 11:15] VITALS: BP 132/81; PULSE 55; RESP 12; TEMP 36.2; O2SAT 95
[2023-05-13 11:30] VITALS: BP 106/50; PULSE 47; RESP 13; O2SAT 98
[2023-05-13 11:45] VITALS: BP 139/71; PULSE 45; RESP 16; TEMP 36.2; O2SAT 98
== END 2023-05-13 12:04 | disposition home or self-care (01) ==
PROVIDERS: PCP Internal Medicine; Visit Provider Internal Medicine Cardiovascular Disease
PROC: 5A2204Z Restoration of Cardiac Rhythm, Single (ICD-10-PCS; principal; 2023-05-13 11:50)
DX: I48.19 Other persistent atrial fibrillation (principal); Z79.01 Long term (current) use of anticoagulants; I10 Essential (primary) hypertension; I35.0 Nonrheumatic aortic (valve) stenosis; Z79.899 Other long term (current) drug therapy
CPT/HCPCS: 92960; 93005; J2704

== ENCOUNTER → 2023-05-13 10:02 | Outpatient (BNV) | payer MEDICARE, SELFPAY | PROVIDERS: PCP Internal Medicine; Visit Provider Internal Medicine Cardiovascular Disease | DX: I48.19 Other persistent atrial fibrillation (principal) | CPT/HCPCS: 92960 ==

== ENCOUNTER 2023-06-19 09:05 | Outpatient (AMB) | payer MEDICARE, SELFPAY ==
[2023-06-19 09:09] VITALS: BP 130/60; PULSE 62; BMI 27.5
--- NOTE | 2023-06-19 09:09 | MHC.OFFVIS ---
Intake Vital Signs 06/19/23 09:09 Height 5 ft 10 in Weight 191 lb 12.835 oz BMI 27.5 BP 130/60 Blood Pressure Location Lt brachial Position Sitting Pulse 62 Intake Visit Reasons: Follow up post cardioversion Intake Note: pt its feeling good Trimming Machine Set Up Operator Required: No Accompanied by: Self / Same As Patient Allergies No Known Allergies Allergy (Verified 05/13/23 10:15) HPI HPI Comments History of Present Illness Details Dom comes for follow-up after recent cardioversion April. He said since cardioversion feels no different. This is not have any improvement in his exercise capacity or shortness of breath. He continues to remain fairly active. No complications a cardioversion. Denies any exertional chest pain. No orthopnea, PND, leg edema. No bleeding issues or neurologic events. [facility] Medical History Paroxysmal atrial fibrillation Persistent atrial fibrillation Hyperlipidemia Peripheral vascular disease HTN (hypertension) Lyme disease Surgical History History of appendectomy History of lumbar laminectomy History of cervical discectomy H/O colonoscopy S/p bilateral carotid endarterectomy Social History Are you a primary critical care physician to a significant other at home: No Do you presently have visiting nurse or other home services: No Alcohol intake: never Patient Tobacco Use Status: Former Tobacco user Quit Date: 1987 Tobacco use type: Cigarette Current occupational status: retired Review of Systems Const Reports chills, Reports fatigue, Reports fever(s), Reports frequent falls, Reports weakness, Reports weight gain and Reports weight loss ENT Reports dizziness Card Reports chest pain, Reports leg edema, Reports lightheadedness, Reports palpitations, Reports dyspnea and Reports dyspnea on exertion Resp Reports cough, Reports dyspnea and Reports dyspnea on exertion GI Reports hematochezia Musc Reports abnormal gait, Reports muscle weakness, Reports numbness, Reports radiating pain into limb and Reports tingling Neuro Denies Abnormal speech present, Reports abnormal gait, Reports dizziness, Reports frequent falls, Reports numbness, Reports tingling and Reports weakness Endo Reports fatigue and Reports palpitations Physical Exam Vital Signs: Last Vital Signs Pulse 62 06/19/23 09:09 BP 130/60 06/19/23 09:09 BMI result Body Mass Index 27.5 Const General: cooperative, comfortable, no acute distress, alert, awake and Physically active Nutritional Appearance: average body habitus Orientation/consciousness: patient oriented x3 Limitations: no limitations Neck Neck: Yes trachea midline, Yes supple and Yes no JVD Resp Effort & Inspection: normal respiratory effort Auscultation: clear to auscultation bilaterally Cardio Jugular venous distension: no JVD Palpation: normal PMI Rate: regular rate Rhythm: regular rhythm Heart sounds: S1 normal heart sound present, S2 normal heart sound present, no click, no gallops and Murmur heart sound present systolic early Skin General skin exam: no rashes or lesions noted Neuro General: patient oriented x3 and no focal motor deficits Speech: No Abnormal speech present Extrem General: Yes no clubbing, cyanosis or edema Office Procedures EKG Details: EKG shows normal sinus rhythm with rightward axis 55164-Xhtwkhpqzayklzvgy, Complete Assessment & Plan Assessment & Plan (1) Paroxysmal atrial fibrillation: Code(s): I48.0 - Paroxysmal atrial fibrillation Plan: paroxysmal atrial fibrillation now. Patient status post cardioversion. Although with maintenance of rhythm he does not notice any change in his symptoms or exercise tolerance. With a long discussion about rate control with rhythm control approach and if he has recurrent atrial fibrillation without any new symptoms will continue to pursue rate control approach at that point time. Importance of full-time oral anticoagulation was discussed with currently him being on Xarelto 50 mg daily. Quarterly renal function test should be pursued and dose adjusted accordingly. CHADSVASc score of 4. (2) Aortic stenosis: Code(s): I35.0 - Nonrheumatic aortic (valve) stenosis Plan: Aortic stenosis which is mild. Continue to monitor clinically. Continue aggressive risk factor modification. Follow-up echocardiogram in 1 year's time. Continue full oral anticoagulation above. Lipid modification with target goal LDL at least less than 100 mg/dL. Pathophysiology of aortic stenosis were discussed. Will follow up in the clinic in 1 year's time, sooner p.r.n.. Thank you for allowing me to partake in his care Orders: Orders CA echo transthoracic complete 50 Weeks I35.0 - Nonrheumatic aortic (valve) stenosis Coding Level of Care Code Est Pt Level 4 (50602) Diagnoses Paroxysmal atrial fibrillation I48.0 Aortic stenosis I35.0 CPT Codes EKG - CPT: 84089-Vniznzfebmkhdrsed, Complete ([id number])
== END 2023-06-19 09:56 | disposition home or self-care (01) ==
PROVIDERS: PCP Internal Medicine; Visit Provider Internal Medicine Cardiovascular Disease
DX: I48.0 Paroxysmal atrial fibrillation (principal); I35.0 Nonrheumatic aortic (valve) stenosis
CPT/HCPCS: 93010; 99214

== ENCOUNTER → 2023-06-19 09:05 | Outpatient (BNVA) | payer MEDICARE, SELFPAY | PROVIDERS: PCP Internal Medicine; Visit Provider Internal Medicine Cardiovascular Disease | DX: I48.0 Paroxysmal atrial fibrillation (principal); I35.0 Nonrheumatic aortic (valve) stenosis | CPT/HCPCS: 93005; 99212 ==

== ENCOUNTER 2023-11-18 13:37 | Outpatient (REF) | payer MEDICARE, SELFPAY ==
[2023-11-18 13:53] LABS: MANUAL DIFF FLAG NO
[2023-11-18 14:41] LABS: Basophils Percent Auto 0.4 % (0-2); Eosinophils Absolute Auto 0.2 X10*3/uL (0.0-0.4); Eosinophils Percent Auto 2.5 % (0-4); Hematocrit 42.4 % (42.0-52.0); Hemoglobin 13.7 g/dl (14.0-18.0); Imm Gran Abs Auto 0.03 X10*3/uL (0.00-0.03); Imm Gran Pct Auto 0.4 % (0.0-0.4); Lymphocytes Absolute Auto 2.2 X10*3/uL (1.2-4.9); Lymphocytes Percent Auto 31.3 % (20-40); Mean Corpuscular HGB Conc 32.3 g/dl (31.0-36.0); Mean Corpuscular Hemoglobin 30.9 pg (27.0-33.0); Mean Corpuscular Volume 95.7 fL (80.0-98.0); Mean Platelet Volume 10.5 fL (9.4-12.4); Monocytes Absolute Auto 0.9 X10*3/uL (0.1-1.2); Monocytes Percent Auto 12.3 % (2-11); Neutrophils Absolute Auto 3.8 x10*3/uL (2.0-8.3); Neutrophils Percent Auto 53.1 % (45-73); Platelet Count 159 X10*3/uL (160-400); Red Blood Count 4.43 X10*6/uL (4.60-5.80); White Blood Count 7.1 X10*3/uL (4.8-10.8)
[2023-11-18 15:10] LABS: Alanine Aminotransferase 35 U/L (0-40); Albumin Level 4.2 g/dL (3.5-5.0); Alkaline Phosphatase 79 U/L (39-117); Anion Gap 11 (12-20); Aspartate Amino Transferase 38 U/L (5-37); Bilirubin Total 0.5 mg/dL (0.0-1.0); Blood Urea Nitrogen 21 mg/dL (9-16); Calcium 9.7 mg/dL (8.4-10.2); Carbon Dioxide 28 mmol/L (22-29); Chloride 108 mmol/L (96-108); Estimated Glomerular Filt Rate 47; Glucose Random 109 mg/dL (60-115); Potassium 4.8 mmol/L (3.3-5.1); Sodium 142 mmol/L (135-145); Total Protein 7.4 g/dL (6.5-8.0)
== END 2023-11-18 13:38 | disposition home or self-care (01) ==
LOC: HO.LAB 13:37
PROVIDERS: PCP Internal Medicine; Visit Provider Internal Medicine
DX: I12.9 Hypertensive chronic kidney disease with stage 1 through stage 4 chronic kidney disease, or unspecified chronic kidney disease (principal); N18.9 Chronic kidney disease, unspecified; I73.9 Peripheral vascular disease, unspecified; I48.0 Paroxysmal atrial fibrillation
CPT/HCPCS: 36415; 80053; 85025

== ENCOUNTER 2024-05-20 11:53 | Outpatient (REF) | payer MEDICARE, SELFPAY | END 2024-05-20 11:54 | disposition home or self-care (01) | LOC: HO.WFDLDS 11:53 | PROVIDERS: Visit Provider Internal Medicine | DX: Z13.89 Encounter for screening for other disorder (principal) ==

== ENCOUNTER 2024-05-23 09:21 | Outpatient (REF) | payer MEDICARE, SELFPAY ==
[2024-05-23 09:44] LABS: MANUAL DIFF FLAG NO
[2024-05-23 10:10] LABS: Basophils Percent Auto 0.3 % (0-2); Eosinophils Absolute Auto 0.2 X10*3/uL (0.0-0.4); Eosinophils Percent Auto 3.6 % (0-4); Hematocrit 45.2 % (42.0-52.0); Hemoglobin 14.7 g/dl (14.0-18.0); Imm Gran Abs Auto 0.02 X10*3/uL (0.00-0.03); Imm Gran Pct Auto 0.3 % (0.0-0.4); Lymphocytes Absolute Auto 1.8 X10*3/uL (1.2-4.9); Lymphocytes Percent Auto 30.1 % (20-40); Mean Corpuscular HGB Conc 32.5 g/dl (31.0-36.0); Mean Corpuscular Hemoglobin 31.1 pg (27.0-33.0); Mean Corpuscular Volume 95.6 fL (80.0-98.0); Mean Platelet Volume 10.3 fL (9.4-12.4); Monocytes Absolute Auto 0.7 X10*3/uL (0.1-1.2); Monocytes Percent Auto 11.2 % (2-11); Neutrophils Absolute Auto 3.2 x10*3/uL (2.0-8.3); Neutrophils Percent Auto 54.5 % (45-73); Platelet Count 145 X10*3/uL (160-400); Red Blood Count 4.73 X10*6/uL (4.60-5.80); Red Cell Distribution Width 13.2 % (11.0-16.0); White Blood Count 5.8 X10*3/uL (4.8-10.8)
[2024-05-23 10:48] LABS: Alanine Aminotransferase 38 U/L (0-40); Albumin Level 4.4 g/dL (3.5-5.0); Alkaline Phosphatase 76 U/L (39-117); Anion Gap 12 (12-20); Aspartate Amino Transferase 34 U/L (5-37); Bilirubin Total 0.7 mg/dL (0.0-1.0); Blood Urea Nitrogen 27 mg/dL (9-16); Calcium 9.7 mg/dL (8.4-10.2); Carbon Dioxide 25 mmol/L (22-29); Chloride 109 mmol/L (96-108); Cholesterol 177 mg/dL (<200); Estimated Glomerular Filt Rate 54; Glucose Fasting 100 mg/dL (60-99); HDL Cholesterol 43 mg/dL (>40); LDL Cholesterol Calculated 111 mg/dL (<100); Sodium 141 mmol/L (135-145); Total Protein 7.7 g/dL (6.5-8.0); Triglycerides 119 mg/dL (<150)
[2024-05-23 11:21] LABS: Prostate Specific Antigen 0.62 ng/mL (<0.05-4.0)
== END 2024-05-23 09:22 | disposition home or self-care (01) ==
LOC: HO.LAB 09:21
PROVIDERS: PCP Internal Medicine; Visit Provider Internal Medicine
DX: Z12.5 Encounter for screening for malignant neoplasm of prostate (principal); I48.0 Paroxysmal atrial fibrillation; I12.9 Hypertensive chronic kidney disease with stage 1 through stage 4 chronic kidney disease, or unspecified chronic kidney disease; N18.9 Chronic kidney disease, unspecified; E78.00 Pure hypercholesterolemia, unspecified; I73.9 Peripheral vascular disease, unspecified
CPT/HCPCS: 36415; 80053; 80061; 84153; 85025

== ENCOUNTER 2024-09-12 13:58 | Outpatient (REF) | payer MEDICARE, SELFPAY ==
[2024-09-12 15:37] LABS: Estimated Average Glucose 111 mg/dL; Hemoglobin A1c % 5.5 % (<6.0)
--- OUTSIDE RECORDS SUMMARY | 2024-09-12 15:49 | XMS_ITS | Clinical Summary ---
Author Organization [facility] Facility Address [address] [address] Care Team Providers Care Cleaner And Preparer Name Role Phone Orlando Muir MD Primary Care Provider [phone] Allergies No known active allergies Medications Multiple Vitamin (Multivitamin) tablet Take 1 tablet by mouth 1 (one) time each day Active ascorbic acid (VITAMIN C) 500 MG tablet Take 1 tablet by mouth 1 (one) time each day Active BromSite 0.075 % solution Instill 1 DROP into surgical eye(s) TWICE DAILY directed 09/12/2020 Active cilostazol (PLETAL) 100 MG tablet Take 1 tablet by mouth 2 (two) times a day Active metoprolol succinate XL (TOPROL-XL) 100 MG 24 hr tablet Take 1 tablet by mouth at bed time Active moxifloxacin (VIGAMOX) 0.5 % ophthalmic solution Instill 1 DROP into surgical eye(s) FOUR TIMES DAILY directed 09/12/2020 Active losartan (COZAAR) 50 MG tablet Take 50 mg by mouth 1 (one) time each day 03/12/2021 Active amLODIPine (NORVASC) 5 MG tablet Take 1 tablet (5 mg total) by mouth 1 (one) time each day 90 tablet 3 02/10/2022 Active Xarelto 15 MG tablet Take 15 mg by mouth 1 (one) time each day 07/02/2023 Active rosuvastatin (CRESTOR) 40 MG tablet Take 40 mg by mouth 08/17/2023 Active Farxiga 5 MG tabletIndicatio ns:Chronic Renal Disease Take 5 mg by mouth 1 (one) time each day in the morning 30 tablet 11 07/15/2024 Active Active Problems Problem Noted Date Diagnosed Date Chronic kidney disease stage 3 06/05/2021 Decreased renal function 06/05/2021 Essential hypertension 06/05/2021 Hypertensive renal disease 06/05/2021 Retention of urine 12/05/2020 Encounters Date Type Department Care Team Description 07/14/2024 Refill [facility] [address] [address] Rosa Andino Stage 3 chronic kidney disease, not otherwise specified (HCC) (Primary Dx) from Last 3 Months Family History Medical History Relation Comments Heart disease Mother a fib Relation Status Comments Mother Social History Tobacco Use Types Packs/Day Years Used Date Smoking Tobacco: Former Cigarettes Q uit: 11/12/1987 Smokeless Tobacco: Never Tobacco Cessation:Counseling Given: Not Answered Alcohol Use Standard Drinks/Week Comments Yes 0 (1 standard drink = 0.6 oz pur e alcohol) Sex and Gender Information Value Date Recorded Sex Assigned at Not on file Legal Sex Male 4:51 PM EST Gender Identity Not on file Sexual Orientation Not on file Last Filed Vital Signs Vital Sign Reading Time Taken Comments Blood Pressure 110/56 03/23/2024 12:58 PM EDT Pulse 51 03/23/2024 12:58 PM EDT Temperature - - Respiratory Rate - - Oxygen Saturation 97% 12/05/2020 2:07 PM EDT Inhaled Oxygen Concentration - - Weight 80.7 kg (178 lb) 03/23/2024 12:58 PM EDT Height 177.8 cm (5' 10 ) 12/05/2020 2:07 PM EDT Body Mass Index 25.54 12/05/2020 2:07 PM EDT Plan of Treatment Upcoming Encounters Date Type Department Care Team (Late st Contact Info) Description 09/14/2024 2:00 PM EDT Office Visit [facility] [address] [place] [id number] Nestor Parham MD [address] [address] Health Maintenance Due Date Last Done Comments Pneumococcal Vaccine: 65+ Ye ars (1 of 2 - PCV) 1951 Influenza Vaccine (#1) 2024 Hepatitis B Vaccine Aged Out No longe r eligible based on patient's age to complete this topic Procedures Procedure Name Priority Date/Time Associated Diagnosis Comments PTH, INTACT Routine 09/07/2024 10:53 AM EDT VITAMIN D 25 HYDROXY Routine 09/07/2024 10:53 AM EDT URINE ALBUMIN / CREATININE RATIO Routine 09/07/2024 10:53 AM EDT RENAL FUNCTION PANEL Routine 09/07/2024 10:53 AM EDT from Last 3 Months Results * (ABNORMAL) Urine Albumin / Creatinine Ratio (09/07/2024 10:53 AM EDT) Creatinine, Ur 52.3 Not Estab. mg/dL [facility] Albumin, Urine 75.1 Not Estab. ug/mL [facility] Albumin/Creatin ine Ratio 144(H) 0 - 29 mg/g creat [facility] Comment: ? Normal: ?0 - ??29 ? Moderately increased: 30 - 300 ? Severely increased: ? >300 09/07/2024 10:5 3 AM EDT 09/07/2024 us Nestor Parham MD LAB URINE ORDERABLES Final Resul t [facility] [address] [place] [address] * Vitamin D 25 Hydroxy (09/07/2024 10:53 AM EDT) Vitamin D, 25-OH, Total 40.3 30.0 - 100.0 ng/mL [facility] Comment: Vitamin D deficiency has been defined by the [place] [employer] and an Endocrine Society practice guideline as a level of serum 25-OH vitamin D less than 20 ng/mL (1,2). The Endocrine Society went on to further define vitamin D insufficiency as a level between 21 and 29 ng/mL (2). 1. IOM ([place] [employer]). 2010. Dietary reference ?? intakes for calcium and D. [place]: The ?? [employer] Press. 2. Yannick MF, Citlalli AMEZQUITA, Chris DE LA ROSA, et al. ?? Evaluation, treatment, and prevention of vitamin D ?? deficiency: an Endocrine Society clinical practice ?? guideline. JCEM. 2010; 96(7):1911-30. 09/07/2024 10:5 3 AM EDT 09/07/2024 us Nestor Parham MD LAB BLOOD ORDERABLES Final Resul t [facility] [address] [place] [address] * (ABNORMAL) PTH, Intact (09/07/2024 10:53 AM EDT) PTH 13(L) 15 - 65 pg/mL [facility] 09/07/2024 10:5 3 AM EDT 09/07/2024 us Nestor Parham MD LAB BLOOD ORDERABLES Final Resul t Performing Organization Address City/[facility] [address]/ZIP Co de Phone Number [facility] [facility] [address] [place] [address] * (ABNORMAL) Renal Function Panel (09/07/2024 10:53 AM EDT) Glucose 111(H) 70 - 99 mg/dL [facility] BUN 33(H) 8 - 27 mg/dL [facility] Creatinine 1.39(H) 0.76 - 1.27 mg/dL [facility] eGFR CKD-EPI CR 2020 51(L) >59 mL/min/1.7 3 [facility] BUN/Creatinine Ratio 24 10 - 24 [facility] Sodium 142 134 - 144 mmol/L [facility] Potassium 4.2 3.5 - 5.2 mmol/L [facility] Chloride 106 96 - 106 mmol/L [facility] Bicarbonate (CO2) 20 20 - 29 mmol/L [facility] Calcium 9.7 8.6 - 10.2 mg/dL [facility] Albumin 4.4 3.7 - 4.7 g/dL [facility] Phosphorus 3.3 2.8 - 4.1 mg/dL [facility] 09/07/2024 10:5 3 AM EDT 09/07/2024 Nestor Parham MD LAB BLOOD ORDERABLES Final Resul t [facility] [address] [place] [address] from Last 3 Months Insurance [facility] MEDICARE [facility] MEDICARE Care Teams Cleaner And Preparer Relationship Specialty Start Date End Date Orlando Muir MD [address] [place] PCP - General 06/25/20
--- OUTSIDE RECORDS SUMMARY | 2024-09-12 15:49 | XMS_ITS | Encounter Summary ---
Author Organization [facility] Address [address] [place] [address] Care Team Providers Care Cutting Machine Tender Name Role Phone Orlando Muir MD Primary Care Provider [phone] Encounter Details Date Type Department Care Team (Late st Contact Info) Description 09/13/[facility] [address] [place] [address] [address] [place] [address] Yohan Huitron MD [address] [facility] [address] [place] [address] Encounter for laboratory testing for COVID-19 virus Social History Tobacco Use Types Packs/Day Years Used Date Smoking Tobacco: Never Assessed Sex and Gender Information Value Date Recorded Sex Assigned at Not on file Gender Identity Not on file Sexual Orientation Not on file COVID-19 Exposure Response Date Recorded In the last month, have you been in contact with someone who was confirmed or suspected to have Coronavirus / COVID-19? No / Unsure 09/12/2020 2:37 PM EDT documented as of this encounter Plan of Treatment Not on file documented as of this encounter Procedures Procedure Name Priority Date/Time Associated Diagnosis Comments COVID-19 (SARS-COV-2) LYNETTE Routine 09/13/2020 12:56 PM EDT Encounter for laboratory testing for COVID-19 virus [ICD-10-CM] documented in this encounter Results * COVID-19 (SARS-CoV-2), LYNETTE (In-House) (09/13/2020 12:56 PM EDT) SARS CoV 2 Not Detected Not Detected 09/13/2020 8:56 PM EDT [facility] Comment: Negative results do not preclude SARS-CoV-2 (COVID-19)infection and should not be used as the sole basis for treatment or other patient management decisions. The SARS-CoV-2 (Covid-19) Nucleic Acid Amplification Assay is limited to laboratories certified under the Clinical Laboratory Improvement Amendments of 1988 (CLIA), 42 U.S.C. 263a, to perform high complexity tests. Nucleic acid amplication tests include RT-PCR and TMA. This assay has not been FDA cleared or approved, however, this assay has been authorized by the Food and Drug Administration (FDA) under an Emergency Use Authorization (EUA). ??Validation was completed and performance characteristics established by [facility] as per the FDA and CLIA requirement for this EUA. The Aptima SARS-CoV-2 assay Letter of Authorization, along with the authorized Fact Sheet for Healthcare Providers, the authorized Fact Sheet for Patients, and authorized labeling are available on the FDA website: https://www.fda.gov/medical-devices/uelxsxynn-nxwmkpqboq-hndgkvj-devices/emergen - d-tjxqtwcehjjlit-vestnog-devices. Performed at [facility], [place], [place] ??[place] License 0385 ??CLIA [id number] Source Nasopharyngeal 09/13/2020 8:56 PM EDT [facility] Comment:Performed at [facility], [place], [place] license No. [id number] CLIA No. [id number] Microbiology Nasopharyngeal swab / Unknown 09/13/2020 12:56 PM EDT 09/13/2020 12:56 PM EDT Yohan Huitron MD MICROBIOLOGY - GENER AL ORDERABLES [facility] [address] [place] [address] documented in this encounter Visit Diagnoses Diagnosis Encounter for laboratory testing for COVID-19 virus documented in this encounter Care Teams Cutting Machine Tender Relationship Specialty Start Date End Date Orlando Muir MD [address] [place] [address] [address] [place], [place] [address] PCP - General 09/12/20 documented as of this encounter
--- OUTSIDE RECORDS SUMMARY | 2024-09-12 15:49 | XMS_ITS | Clinical Summary ---
Author Organization [facility] Address [address] [place] [address] Care Team Providers Care Underground Mine Machinery Mechanic Name Role Phone Orlando Muir MD Primary Care Provider [phone] Social History Tobacco Use Types Packs/Day Years Used Date Smoking Tobacco: Never Assessed Sex and Gender Information Value Date Recorded Sex Assigned at Not on file Gender Identity Not on file Sexual Orientation Not on file Plan of Treatment Health Maintenance Due Date Last Done Comments DTaP/Tdap/Td Vaccines (1 - Tdap) 1962 Pneumococcal Vaccines 50+ (1 of 1 - PCV) 1993 Zoster (Shingles) Vaccine (1 of 2) 1993 RSV Vaccine 60 years and old er and Patients (1 - 1-dose 75+ series) 2018 Influenza Vaccine 01/14/2024 COVID-19 Vaccine ( - 2023-2 5 season) 2024 Hepatitis B Vaccines Aged Out No long er eligible based on patient's age to complete this topic Medical Devices Implanted Type Area Site Operations Manager Device Identifier Shelf Expiration Date Model / Serial / Lot [id number] Lens Iol 0 D +25 Devon +2.25 Cylinder Bcnvx 13mm 6mm - [id number] Implanted:Qty: 1 on 09/18/2020 by [facility] [employer] [id number] / [id number] / [id number].235 Lens Iol 0 D +23.5 Devon Mod L Bcnvx 13mm 6mm Posterior - [id number] Implanted:Qty: 1 on 01/02/2021 by Yohan Huitron MD at [facility], [place] Lens [employer] SN60WF.235 / [id number] / Care Teams Underground Mine Machinery Mechanic Relationship Specialty Start Date End Date Orlando Muir MD [address] [place] [address] [place] [address] PCP - General 09/12/20
[2024-09-12 17:07] LABS: Alanine Aminotransferase 36 U/L (0-40); Albumin Level 4.2 g/dL (3.5-5.0); Alkaline Phosphatase 73 U/L (39-117); Anion Gap 12 (12-20); Aspartate Amino Transferase 33 U/L (5-37); Bilirubin Total 0.7 mg/dL (0.0-1.0); Blood Urea Nitrogen 31 mg/dL (9-16); Calcium 9.5 mg/dL (8.4-10.2); Carbon Dioxide 26 mmol/L (22-29); Chloride 109 mmol/L (96-108); Estimated Glomerular Filt Rate 48; Glucose Random 101 mg/dL (60-115); Potassium 4.5 mmol/L (3.3-5.1); Sodium 142 mmol/L (135-145); Total Protein 7.3 g/dL (6.5-8.0)
== END 2024-09-12 13:59 | disposition home or self-care (01) ==
LOC: HO.WFDLDS 13:58
PROVIDERS: Visit Provider Internal Medicine
DX: I10 Essential (primary) hypertension (principal); Z13.1 Encounter for screening for diabetes mellitus
CPT/HCPCS: 36415; 80053; 83036

== ENCOUNTER 2024-09-19 08:24 | Outpatient (AMB) | payer MEDICARE, SELFPAY ==
[2024-09-19 08:30] VITALS: BP 130/70; PULSE 52; BMI 26.3
--- NOTE | 2024-09-19 08:30 | MHC.OFFVIS ---
Vital Signs 09/19/24 08:30 Height 5 ft 10 in Weight 182 lb 15.739 oz BMI 26.3 BP 130/70 Blood Pressure Location Lt brachial Position Sitting Pulse 52 Intake Visit Reasons: r/s 06/29/24 1 yr followup w/ekg after echo Intake Note: 1 year follow-up with ekg after echo feeling good Instructional Assistant Required: No Allergies No Known Allergies Allergy (Verified 05/13/23 10:15) Medication List - Last Reconciled 09/19/24 by Terry Max MD amlodipine 5 mg PO QPM ascorbic acid (vitamin C) (Vitamin C) 500 mg PO QAM cilostazol 100 mg PO BID dapagliflozin propanediol (Farxiga) 5 mg PO DAILY metoprolol succinate ER 100 mg PO QPM multivitamin 1 tab PO QAM rivaroxaban (Xarelto) 15 mg PO QPM rosuvastatin (Crestor) 40 mg PO QPM HPI Comments Details: Dom comes for follow-up. He remains extremely active and does have exertional shortness of breath but this he thinks his usual for him for many years. No new complaints no progressive shortness of breath, orthopnea, PND. No exertional chest pain. No lightheadedness, syncope. No prolonged irregular heartbeat or palpitations. No bleeding issues or neurologic events. Follows with vascular for his peripheral vascular disease as carotid disease at [facility] Medical History Paroxysmal atrial fibrillation Persistent atrial fibrillation Hyperlipidemia Peripheral vascular disease HTN (hypertension) Lyme disease Surgical History History of appendectomy History of lumbar laminectomy History of cervical discectomy H/O colonoscopy S/p bilateral carotid endarterectomy Social History Are you a primary care manager to a significant other at home: No Do you presently have visiting nurse or other home services: No Alcohol intake: never Patient Tobacco Use Status: Former Tobacco user Tobacco use type: Cigarette Current occupational status: retired Review of Systems Const Denies chills, Denies fatigue, Denies fever(s), Denies frequent falls, Denies weakness, Denies weight gain and Denies weight loss ENT Denies dizziness Card Denies chest pain, Denies leg edema, Denies lightheadedness, Denies palpitations, Denies dyspnea, Denies dyspnea on exertion, Denies orthopnea and Denies other (loss of consciousness) Resp Denies cough, Denies dyspnea and Denies dyspnea on exertion GI Denies hematochezia and Denies change in stool character Musc Denies abnormal gait, Denies muscle weakness, Denies numbness, Denies radiating pain into limb and Denies tingling Neuro Denies Abnormal speech present, Denies abnormal gait, Denies dizziness, Denies frequent falls, Denies numbness, Denies tingling and Denies weakness Endo Denies fatigue and Denies palpitations Physical Exam Vital Signs: Last Vital Signs Pulse 52 09/19/24 08:30 BP 130/70 09/19/24 08:30 BMI result Body Mass Index 26.3 Const General: cooperative, comfortable, no acute distress, alert, awake and Physically active Nutritional Appearance: average body habitus Orientation/consciousness: patient oriented x3 Limitations: no limitations Neck Neck: Yes trachea midline, Yes supple and Yes no JVD Carotids: bruit on the left Resp Effort & Inspection: normal respiratory effort Auscultation: clear to auscultation bilaterally Cardio Jugular venous distension: no JVD Palpation: normal PMI Rate: regular rate Rhythm: regular rhythm Heart sounds: S1 normal heart sound present, S2 normal heart sound present, no click, no gallops and Murmur heart sound present systolic early Skin General skin exam: no rashes or lesions noted Neuro General: patient oriented x3 and no focal motor deficits Speech: No Abnormal speech present Extrem General: Yes no clubbing, cyanosis or edema Office Procedures EKG Details: EKG shows normal sinus rhythm with rightward axis otherwise normal EKG at 52 beats per minute 35246-Igyrlmulnkclgiegu, Complete Assessment & Plan Assessment & Plan (1) Paroxysmal atrial fibrillation: Code(s): I48.0 - Paroxysmal atrial fibrillation Category: Medical Plan: Paroxysmal atrial fibrillation which has remained suppressed after cardioversion has done very well with rhythm control approach. Continue pursue rhythm control approach. No recurrent clinical atrial fibrillation at this point time. Avoid any rate control therapy. Continue metoprolol therapy. Continue full oral anticoagulation, currently on Xarelto 50 mg daily which is renally dose adjusted. Quarterly renal function test should be pursued. Continue aggressive blood pressure control. (2) Aortic stenosis: Code(s): I35.0 - Nonrheumatic aortic (valve) stenosis Category: Medical Plan: Aortic stenosis which clinically still appears to be mild. Continue monitor by echocardiogram every couple years. Will follow-up echocardiogram near future. Continue current current aggressive risk factor modification. Continue high-intensity statin therapy with target goal LDL less than 70 mg/dL. Continue aggressive blood pressure control. (3) HTN (hypertension): Code(s): I10 - Essential (primary) hypertension Category: Medical Plan: Hypertension which is well optimized on current therapy. Importance of good blood pressure control was discussed. Target goal blood pressure less than 130/84. Advised to continue monitor blood pressure and maintain a log. Will follow up in the clinic in 1 year's time, sooner p.r.n.. Thank you for allowing me to partake in his care Coding Level of Care Code Est Pt Level 4 (52565) Complex EM visit Add On G2211 Diagnoses Paroxysmal atrial fibrillation I48.0 Aortic stenosis I35.0 HTN (hypertension) I10 CPT Codes EKG - CPT: 49899-Wwexzldahacrxootj, Complete ([id number])
--- OUTSIDE RECORDS SUMMARY | 2024-09-19 08:56 | XMS_ITS | Clinical Summary ---
Author Organization [facility] Address [address] [place] [address] Care Team Providers Care Food Runner Name Role Phone Orlando Muir MD Primary Care Provider [phone] Social History Tobacco Use Types Packs/Day Years [...] this topic Medical Devices Implanted Type Area Traveling Crane Operator Device Identifier Shelf Expiration Date Model / Serial / Lot [id number] Lens Iol 0 D +25 Devon +2.25 Cylinder Bcnvx 13mm 6mm - [id number] Implanted:Qty: 1 on 09/18/2020 by [facility] [employer] [id number] .250 / [id number] / [id number].235 Lens Iol 0 D +23.5 Devon Mod L Bcnvx 13mm 6mm Posterior - [id number] Implanted:Qty: 1 on 01/02/2021 by Yohan Huitron MD at [facility] [place] Lens [employer] [id number] .235 / [id number] / Care Teams Food Runner Relationship Specialty Start Date End Date Orlando Muir MD [address] [place] [address] [place] [address] PCP - General 09/12/20
--- OUTSIDE RECORDS SUMMARY | 2024-09-19 08:56 | XMS_ITS | Encounter Summary ---
Author Organization [facility] Address [address] [place] [phone] Phone Care Team Providers Care Jackaroo Name Role Phone Orlando Muir MD Primary Care Provider [phone] Reason for Visit * Reason Comments Chronic Kidney Disease Encounter Details Date Type Department Care Team ([facility] st Contact Info) Description 09/14/2024 2:00 PM EDT Office Visit [facility] [address] [place] [address] Nestor Parham MD [address] [address] Stage 3 chronic kidney disease, not otherwise specified (HCC) (Primary Dx); Hypertension; Persistent proteinuria Social History Tobacco Use Types Packs/Day Years Used Date Smoking Tobacco: Former Cigarettes Q uit: 11/12/1987 Smokeless Tobacco: Never Alcohol Use Standard Drinks/Week Comments Yes 0 (1 standard drink = 0.6 oz pur e alcohol) Sex and Gender Information Value Date Recorded Sex Assigned at Not on file Legal Sex Male 4:51 PM EST Gender Identity Not on file Sexual Orientation Not on file documented as of this encounter Last Filed Vital Signs Vital Sign Reading Time Taken Comments Blood Pressure 113/59 09/14/2024 1:46 PM EDT Pulse 50 09/14/2024 1:46 PM EDT Temperature - - Respiratory Rate - - Oxygen Saturation - - Inhaled Oxygen Concentration - - Weight 78.9 kg (174 lb) 09/14/2024 1:46 PM EDT Height - - Body Mass Index 24.97 12/05/2020 2:07 PM EDT documented in this encounter Progress Notes * Nestor Parham MD - 09/14/2024 2:00 PM EDT [facility] Patient Name: Dom Griffin, Male Date of : 1945, 79 y.o. Date: 09/14/2024 Referring MD: Orlando Muir MD PCP: Orlando Muir MD Reason For Visit: I had the pleasure of seeing your patient for follow up of CKD. The following portions of the patient's chart were reviewed in this encounter and updated as appropriate: Allergies Meds Problems Med Hx Surg Hx Fam Hx Constitutional: Negative for chills, fever, malaise/fatigue and weight loss. HENT: Negative for ear pain, hearing loss and tinnitus. Eyes: Negative for blurred vision, double vision, photophobia and pain. Respiratory: Negative for cough, hemoptysis, sputum production, shortness of breath and wheezing. Cardiovascular: Negative for chest pain, palpitations, orthopnea, claudication and leg swelling. Gastrointestinal: Negative for abdominal pain, diarrhea, nausea and vomiting. Genitourinary: Negative for dysuria, flank pain, frequency, hematuria and urgency. Musculoskeletal: Negative for myalgias. Skin: Negative for itching and rash. Neurological: Negative for dizziness, tingling and headaches. Psychiatric/Behavioral: Negative for depression. Full 13 point review of systems unremarkable except as noted above. Past Medical History: Diagnosis Date H/O: kidney disease Hyperlipidemia Hypertension Past Surgical History: Procedure Laterality Date APPENDECTOMY CAROTID ENDARTERECTOMY OTHER SURGICAL HISTORY Social History Tobacco Use Smoking status: Former Current packs/day: 0.00 Types: Cigarettes Quit date: 11/12/1987 Years since quittin.8 Smokeless tobacco: Never Substance Use Topics Alcohol use: Yes Family History Problem Relation Age of Onset Heart disease Mother a fib Current Outpatient Medications Medication Sig Dispense Refill amLODIPine (NORVASC) 5 MG tablet Take 1 tablet (5 mg total) by mouth 1 (one) time each day 90 tablet 3 ascorbic acid (VITAMIN C) 500 MG tablet Take 1 tablet by mouth 1 (one) time each day BromSite 0.075 % solution Instill 1 DROP into surgical eye(s) TWICE DAILY directed cilostazol (PLETAL) 100 MG tablet Take 1 tablet by mouth 2 (two) times a day Farxiga 5 MG tablet Take 5 mg by mouth 1 (one) time each day in the morning 30 tablet 11 losartan (COZAAR) 50 MG tablet Take 50 mg by mouth 1 (one) time each day metoprolol succinate XL (TOPROL-XL) 100 MG 24 hr tablet Take 1 tablet by mouth at bed time moxifloxacin (VIGAMOX) 0.5 % ophthalmic solution Instill 1 DROP into surgical eye(s) FOUR TIMES DAILY directed Multiple Vitamin (Multivitamin) tablet Take 1 tablet by mouth 1 (one) time each day rosuvastatin (CRESTOR) 40 MG tablet Take 40 mg by mouth Xarelto 15 MG tablet Take 15 mg by mouth 1 (one) time each day No current facility-administered medications for this visit. No Known Allergies Objective: Vitals: 09/14/24 1346 BP: 113/59 Pulse: 50 Weight: 174 lb (78.9 kg) Constitutional: He is oriented to person, place, and time. He does not appear ill. HEENT: Mouth/Throat: Oropharynx is clear and moist. Eyes: Pupils are equal, round, and reactive to light. Neck: No JVD present. Cardiovascular: Regular rhythm. He exhibits no edema. Pulmonary/Chest: Breath sounds normal. Abdominal: Soft. There is no abdominal tenderness. Musculoskeletal: Normal range of motion. Neurological: He is alert and oriented to person, place, and time. Skin: Skin is warm. Psychiatric: He has a normal mood and affect. EST GFR Date Value Ref Range Status 11/26/2020 49 ML/MIN/1.73 M2 Final Comment: Creatinine based estimated glomerular filtration rate (eGFR) is calculated using the Chronic Kidney Disease Epidemiology Collaboration (CKD-EPI). The CKD-EPI creatinine equation has not been validated in children (<18 years), women or in some racial or ethnic subgroups other than Caucasians and Americans. Testing performed or reported by [facility], a Service of [facility], [address] [place] [address] Sin Garcia MD, Pipe Setter Est GFR Non Date Value Ref Range Status 05/29/2021 56 ML/MIN/1.73 M2 Final Comment: Effective 03/06/2021, race modifiers will no longer be included in our creatinine-based CKD-EPI eGFR calculations. Accordingly, eGFR lab report descriptors (i.e., EST GFR NON , EST GFR ) will be discontinued. Please take this into account when utilizing creatinine-based formulations to diagnose and manage chronic kidney disease. Creatinine based estimated glomerular filtration rate (eGFR) is calculated using the Chronic Kidney Disease Epidemiology Collaboration (CKD-EPI). The CKD-EPI calculation is not validated in children (<18 years), woman or in racial or ethnic subgroups. Testing performed or reported by [facility], a Service of [facility], [address] [place] [address] Sin Garcia MD, Pipe Setter [facility]# [id number] Chemistry Lab Units 09/07/24 1053 03/17/24 1517 09/16/23 1441 CREATININE mg/dL 1.39* 1.42* 1.36* BUN mg/dL 33* 30* 25 BUN / CREAT RATIO 24 21 18 GLUCOSE mg/dL 111* 106* 96 POTASSIUM mmol/L 4.2 4.1 5.7* SODIUM mmol/L 142 143 143 CO2 mmol/L 20 22 23 CHLORIDE mmol/L 106 105 105 ALBUMIN g/dL 4.4 4.2 4.6 Bone Mineral Lab Units 09/07/24 1053 03/17/24 1517 09/16/23 1441 CALCIUM mg/dL 9.7 9.3 10.0 PHOSPHORUS mg/dL 3.3 3.1 3.5 PTH pg/mL 13* -- 25 VIT D 25 HYDROXY ng/mL 40.3 -- 32.3 Urine Lab Units 09/07/24 1053 09/16/23 1441 ALB MG/G CREAT UR mg/g creat 144* 267* No lab exists for component: SPECGRAV , GLUCOSEUR , BILIRUBINUR , RBCUR , UPROTEIN , LEUKOCYTESUR , NITRITE PLAN: Assessment & Plan 1. Stage 3 chronic kidney disease, not otherwise specified (HCC) 2. Hypertension 3. Persistent proteinuria Kidney function is at baseline. True clearance is probably worse than eGFR. He has microscopic proteinuria. 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 -urinary retention. Blood pressure is on target. He is on losartan 50 mg daily, amlodipine 5 mg daily and metoprolol 100 mg twice a day. He is on dapagliflozin. PLAN SGTL2i RAASi Follow kidney function and electrolytes low sodium diet avoid NSAID Orders Placed This Encounter Renal funtion panel Return in 6 months (on 03/16/2025). Nestor Parham MD documented in this encounter Plan of Treatment Upcoming Encounters Date Type Department Care Team (Late st Contact Info) Description 03/15/2025 2:45 PM EDT Office Visit [facility] [address] [place] [phone] Nestor Parham MD [address] [phone] Scheduled Orders Name Type Priority Associated Diagnoses Orde r Schedule Renal funtion panel Lab Routine Stage 3 chronic kidney disease, not otherwise specified (HCC) Expected: 09/14/2024, Expires: 10/14/2025 documented as of this encounter Visit Diagnoses Diagnosis Stage 3 chronic kidney disease, not otherwise specified (HCC)- Primary Hypertension Persistent proteinuria documented in this encounter Care Teams Jackaroo Relationship Specialty Start Date End Date Orlando Muir MD [address] [place], [place] PCP - General 06/25/20 documented as of this encounter
--- OUTSIDE RECORDS SUMMARY | 2024-09-19 08:56 | XMS_ITS | Encounter Summary ---
Author Organization [facility] Address [address] [place] [address] Care Team Providers Care Ux Architect Name Role Phone Orlando Muir MD Primary Care Provider [phone] Encounter Details Date Type Department Care Team (Late st Contact Info) Description 09/13/[facility] [address] [place] [address] [address] [place] [address] Yohan Huitron MD [address] [facility] [address] [place] [address] Encounter for laboratory testing for COVID-19 virus [...] Detected Not Detected 09/13/2020 8:56 PM EDT [facility] Comment: Negative results do not [...] was completed and performance characteristics established by [facility] as per the FDA and CLIA requirement for this EUA. The Aptima SARS-CoV-2 assay Letter of Authorization, along with the authorized Fact Sheet for Healthcare Providers, the authorized Fact Sheet for Patients, and authorized labeling are available on the FDA website: https://www.fda.gov/medical-devices/cjqxnopju-rwazmvnqse-tfsqngt-devices/emergen - f-wikrqgqhozhgaa-yehgdzd-devices. Performed at [facility], [place], [place] ??[place] License [id number] ??CLIA [id number] Source Nasopharyngeal 09/13/2020 8:56 PM EDT [facility] Comment:Performed at [facility], [place], [place] license No. [id number] CLIA No. [id number] Microbiology Nasopharyngeal swab / Unknown 09/13/2020 12:56 PM EDT 09/13/2020 12:56 PM EDT Yohan Huitron MD MICROBIOLOGY - GENER AL ORDERABLES [facility] [address] [place] [address] documented in this encounter Visit Diagnoses Diagnosis Encounter for laboratory testing for COVID-19 virus documented in this encounter Care Teams Ux Architect Relationship Specialty Start Date End Date Orlando Muir MD [address] [place] [address] [address] [place], [place] [address] PCP - General 09/12/20 documented as of this encounter
--- OUTSIDE RECORDS SUMMARY | 2024-09-19 08:56 | XMS_ITS | Clinical Summary ---
Author Organization [facility] Facility Address [address] [address] Care Team Providers Care Kennel Technician Name Role Phone Orlando Muir MD Primary Care Provider [phone] Allergies No known active allergies Medications Multiple [...] Encounters Date Type Department Care Team Description 09/14/2024 2:00 PM EDT Office Visit [facility] [address] [place] [phone] Nestor Parham MD Stage 3 chronic kidney disease, not otherwise specified (HCC) (Primary Dx); Hypertension; Persistent proteinuria 07/14/2024 Refill [facility] [address] [phone] Rosa Andino Stage 3 chronic [...] EDT Inhaled Oxygen Concentration - - Weight 78.9 kg (174 lb) 09/14/2024 1:46 PM EDT Height 177.8 cm (5' 10 ) 12/05/2020 2:07 PM EDT Body Mass Index 24.97 12/05/2020 2:07 PM EDT Plan of Treatment Upcoming Encounters Date Type Department Care Team (Late st Contact Info) Description 03/15/2025 2:45 PM EDT Office Visit [facility] [address] [place] [phone] Nestor Parham MD [address] [address] Health Maintenance Due Date Last Done Comments Pneumococcal Vaccine: 65+ Ye ars (1 of 2 - PCV) 1951 Influenza Vaccine (Season Ended) 2025 Hepatitis B Vaccine Aged Out No longe [...] Creatinine, Ur 52.3 Not Estab. mg/dL [facility] Albumin, Urine 75.1 Not Estab. ug/mL [facility] Albumin/Creatin ine Ratio 144(H) 0 - 29 mg/g creat [facility] Comment: ? Normal: ?0 - ??29 ? Moderately increased: 30 - 300 ? Severely increased: ? >300 09/07/2024 10:5 3 AM EDT 09/07/2024 us Nestor Parham MD LAB URINE ORDERABLES Final Resul t [facility] [address] [place] [address] * Vitamin D 25 Hydroxy (09/07/2024 10:53 AM EDT) Vitamin D, 25-OH, Total 40.3 30.0 - 100.0 ng/mL [facility] Comment: Vitamin D deficiency has been defined by the [place] of Medicine and an Endocrine Society practice guideline as a level of serum 25-OH vitamin D less than 20 ng/mL (1,2). The Endocrine Society went on to further define vitamin D insufficiency as a level between 21 and 29 ng/mL (2). 1. IOM ([place] of Medicine). 2010. Dietary reference ?? intakes for calcium and D. [place]: The ?? National [employer]. 2. Yannick CORBETT, Citlalli AMEZQUITA, Chris DE LA ROSA, et al. ?? Evaluation, treatment, and prevention of vitamin D ?? deficiency: an Endocrine Society clinical practice ?? guideline. JCEM. 2010; 96(7):1911-30. 09/07/2024 10:5 3 AM EDT 09/07/2024 Nestor Parham MD LAB BLOOD ORDERABLES Final Resul t [facility] [address] [place] [address] * (ABNORMAL) PTH, Intact (09/07/2024 10:53 AM EDT) PTH 13(L) 15 - 65 pg/mL [facility] 09/07/2024 10:5 3 AM EDT 09/07/2024 Nestor Parham MD LAB BLOOD ORDERABLES Final Resul t [facility] [address] [place] [address] * (ABNORMAL) Renal Function Panel (09/07/2024 10:53 AM EDT) Glucose 111(H) 70 - 99 mg/dL [facility] BUN 33(H) 8 - 27 mg/dL [facility] Creatinine 1.39(H) 0.76 - 1.27 mg/dL [facility] eGFR CKD-EPI CR 2020 51(L) >59 mL/min/1.7 3 [facility] BUN/Creatinine Ratio 24 10 - 24 [facility] Sodium 142 134 - 144 mmol/L [facility] Potassium 4.2 3.5 - 5.2 mmol/L [facility] Chloride 106 96 - 106 mmol/L [facility] Bicarbonate (CO2) 20 20 - 29 mmol/L [facility] Calcium 9.7 8.6 - 10.2 mg/dL [facility] Albumin 4.4 3.7 - 4.7 g/dL [facility] Phosphorus 3.3 2.8 - 4.1 mg/dL [facility] 09/07/2024 10:5 3 AM EDT 09/07/2024 us Nestor Parham MD LAB BLOOD ORDERABLES Final Resul t [facility] [address] [place] [address] from Last 3 Months Insurance [facility] MEDIC[facility] Care Teams Kennel Technician Relationship Specialty Start Date End Date Orlando Muir MD [address] [place] [address] DRIVE [address] [place], [place] PCP - General 06/25/20
== END 2024-09-19 08:50 | disposition home or self-care (01) ==
LOC: HO.HCS 08:25
PROVIDERS: PCP Internal Medicine; Visit Provider Internal Medicine Cardiovascular Disease
DX: I48.0 Paroxysmal atrial fibrillation (principal); I35.0 Nonrheumatic aortic (valve) stenosis; I10 Essential (primary) hypertension
CPT/HCPCS: 93010; 99214; G2211

== ENCOUNTER → 2024-09-19 08:24 | Outpatient (BNVA) | payer MEDICARE, SELFPAY | PROVIDERS: PCP Internal Medicine; Visit Provider Internal Medicine Cardiovascular Disease | DX: I10 Essential (primary) hypertension (principal); I48.0 Paroxysmal atrial fibrillation; I35.0 Nonrheumatic aortic (valve) stenosis | CPT/HCPCS: 93005; 99202; 99212 ==

== ENCOUNTER 2024-09-19 15:14 | Outpatient (AMB) | payer MEDICARE, SELFPAY ==
[2024-09-19 15:17] VITALS: BP 136/80; PULSE 50; TEMP 36.3; O2SAT 98; BMI 25.8
--- NOTE | 2024-09-19 15:17 | A.OFFPC_ITS ---
Vital Signs 09/19/24 15:17 Height 5 ft 10 in Weight 180 lb BMI 25.8 BP 136/80 Blood Pressure Location Lt brachial Position Sitting Pulse 50 Pulse Source Pulse Oximeter Temp 97.3 F Temp Source Axillary Pulse Oximetry (%) 98 Oxygen Delivery Method Room Air Intake Visit Reasons: Routine Chipper Operator Required: No Accompanied by: Self / Same As Patient Allergies No Known Allergies Allergy (Verified 09/19/24 16:26) Medication List - Last Reconciled 09/19/24 by Samuel Coker MD amlodipine 5 mg PO QPM ascorbic acid (vitamin C) (Vitamin C) 500 mg PO QAM dapagliflozin propanediol (Farxiga) 5 mg PO DAILY metoprolol succinate ER 100 mg PO QPM multivitamin 1 tab PO QAM rivaroxaban (Xarelto) 15 mg PO QPM rosuvastatin (Crestor) 40 mg PO QPM Tobacco use date assessed: 09/19/24 Fall risk assessment: No Falls in past year Dental Screening Dental Screen Date: 09/19/24 Did you have a dental visit in the last 12 months?: Yes Did you have a dental problem in the last 6 months where you did not have access to dental care?: No [facility] Medical History Paroxysmal atrial fibrillation Persistent atrial fibrillation Hyperlipidemia Peripheral vascular disease HTN (hypertension) Lyme disease Surgical History History of appendectomy History of lumbar laminectomy History of cervical discectomy H/O colonoscopy S/p bilateral carotid endarterectomy Family History Father No problems noted. Mother No problems noted. Social History Housing: House Are you a primary health and social care teacher to a significant other at home: No Do you presently have visiting nurse or other home services: No Alcohol intake: never Patient Tobacco Use Status: Former Tobacco user Tobacco use type: Cigarette e-Cigarette/Vaping Use: Former Use service: No Current occupational status: retired Cognitive needs: No Hearing needs: No Vision needs: Yes (rx glasses) Questionnaire PHQ-9 Over the last 2 weeks, how often have you been bothered by any of the following problems? 1. Little interest or pleasure in doing things: not at all 2. Feeling down, depressed, or hopeless: not at all 3. Trouble falling or staying asleep, or sleeping too much: not at all 4. Feeling tired or having little energy: not at all 5. Poor appetite or overeating: not at all 6. Feeling bad about yourself - or that you are a failure or have let yourself or your family down: not at all 7. Trouble concentrating on things, such as reading the newspaper or watching television: not at all 8. Moving or speaking so slowly that other people could have noticed. Or the opposite - being so fidgety or restless that you have been moving around a lot more than usual: not at all 9. Thoughts that you would be better off or of hurting yourself in some way: not at all Total score: 0 Source: Developed by Drs. Edward Martin, Radha Herrera, Edgar Villa and colleagues, with an educational matteo from [employer]. Thrive Questionnaire Date Thrive assessed: 09/19/24 I am a: Patient Within the past 12 months, did the food you bought not last and you didn't have the money to get more?: Never true Within the past 12 months, did you worry whether your food would run out before you got money to buy more?: Never true Do you have trouble paying for medicines?: No Do you have trouble getting transportation to medical appointments?: No Do you have trouble paying your heating and electricity bill?: No Do you have trouble taking care of your child, family member or friend?: No Do you have trouble with day-to-day activities such as bathing, preparing meals, shopping, managing finances, etc.?: No Are you currently unemployed and looking for a job?: No Are you interested in more education?: No THRIVE Score: 0 AUDIT C Alcohol Use Questionnaire (AUDIT-C) 1. How often do you have a drink containing alcohol?: Monthly or less 2. How many drinks containing alcohol do you have on a typical day when you are drinking?: 1 or 2 3. How often do you have six or more drinks on one occasion?: Less than monthly Total Score: 2 SARA-7 AMB Questionnaire SARA-7 Date SARA - 7 assessed: 09/19/24 Feeling nervous, anxious, or on edge: 0 = Not at all Not being able to stop or control worryin = Not at all Worrying too much about different things: 0 = Not at all Trouble relaxin = Not at all Being so restless that it is hard to sit still: 0 = Not at all Becoming easily annoyed or irritable: 0 = Not at all Feeling afraid as if something awful might happen: 0 = Not at all Total SARA-7 score (0-4 normal; 5-9 mild; 10-14 moderate; 15-21 severe): 0 Source: Developed by Drs. Edward Martin, Radha Herrera, Edgar Villa and colleagues, with an educational matteo from [employer]. Physical exam (Primary Care) Vital Signs: Last Vital Signs Temp 97.3 F 09/19/24 15:17 Pulse 50 09/19/24 15:17 BP 136/80 09/19/24 15:17 Pulse Ox 98 09/19/24 15:17 Oxygen Delivery Method Room Air 09/19/24 15:17 BMI result Body Mass Index 25.8 Tobacco/Smoking Status: Tobacco use Status Tobacco use date assessed 09/19/24 09/19/24 15:19 Patient Tobacco Use Status Former Tobacco user 09/19/24 15:19 Tobacco use type Cigarette 09/19/24 15:19 e-Cigarette/Vaping Use Former Use 09/19/24 16:00 PHQ-9: PHQ-9 Score PHQ-9: Total score 0 09/19/24 16:00 Thrive Assessment: Date of Thrive Assessment Date Thrive assessed 09/19/24 09/19/24 15:19 Coding Level of Care Code New Pt Level 4 (17115) Complex EM visit Add On G2211 Diagnoses HTN (hypertension) I10 Assessment & Plan Assessment & Plan (1) HTN (hypertension): Code(s): I10 - Essential (primary) hypertension Category: Medical Plan: Blood pressure is in range. Continue current medications Plan History of Present Illness The patient is an 79-year-old male presenting for a wellness visit and medication review. He has a medical history significant for atrial fibrillation treated with Xarelto, well-controlled hyperlipidemia managed with Rosuvastatin, and hypertension regulated with Metoprolol, Amlodipine, and previous Losartan usage. His laboratory results from September 11 show baseline kidney function with Stage 3 chronic kidney disease, an A1c level below 6, and cholesterol within the normal range. His surgical history includes cataract surgery with successful lens implants and carotid artery surgery with subsequent stent placement. 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 - Active lifestyle, including skiing and dancing multiple times a week - Drives independently, including at night - Maintains a trust and healthcare proxy - Has one adult daughter residing in [place] Review of Systems - Eyes: Denies halos following cataract surgery - Cardiovascular: Reports history of carotid artery surgery with stent placement; management of atrial fibrillation - Renal/Genitourinary: Reports Stage 3 chronic kidney disease - Musculoskeletal: Engages in regular physical activities including skiing and dancing Physical Exam General: Cooperative and healthy appearing Nutritional Appearance: Well nourished Orientation/consciousness: Patient oriented x3 Limitations: No limitations Head: Normal to inspection General: Appearance normal, both eyes and all related structures Neck: Normal visual inspection Chest: Normal palpation of entire chest wall Respiratory: Normal respiratory effort Neurology: Patient oriented x3 Results Plan The current management plan includes continuing current medication for atrial fibrillation with Xarelto, hyperlipidemia with Rosuvastatin, and hypertension with Metoprolol and Amlodipine. Discontinuation of Losartan has been noted. En couragement of dietary changes to support lipid management remains important. Chronic kidney disease requires routine monitoring to assess stability. Follow- up with Dr. Rowe for kidney health and continued cardiac care through Dr. Beltre with scheduled EKGs and echocardiograms will ensure adequate management. His activities and ability to drive, coupled with his active lifestyle, are to be maintained while observing for any changes in health status. Patient was informed and verbally consented to the use of an ambient scribe for clinic note documentation during this visit. Discussion Notes During our discussion, I outlined the management plan for continuing his established medication regimen and emphasized adherence to current prescriptions. We reviewed his successful cataract and carotid artery procedures and addressed ongoing monitoring needs associated with his chronic kidney disease. Surveillance strategies for atrial fibrillation, including periodic EKG and echocardiograms, were reinforced. I confirmed the importance of ongoing consultations with specialists (Dr. Rowe and Dr. Beltre) for their respective roles in his kidney and heart care. The patient was advised about lifestyle modifications for lipid and blood pressure management, inclusive of dietary changes, emphasizing the benefits of maintaining his active lifestyle. Patient Instructions - Continue Xarelto, Rosuvastatin, Metoprolol, and Amlodipine as prescribed - Monitor blood pressure regularly - Visit Dr. Rowe for follow-ups related to kidney health - Schedule annual EKG and echo with Dr. Beltre for atrial fibrillation management - Maintain heart-healthy and renal-supportive diet - Engage safely in physical activities like dancing and skiing - Return if there are any new or worsening symptoms or concerns
--- OUTSIDE RECORDS SUMMARY | 2024-09-19 18:02 | XMS_ITS | Clinical Summary ---
Author Organization [facility] Address [address] [address] Care Team Providers Care Locomotive Mechanic Name Role Phone Orlando Muir MD Primary Care Provider [phone] Allergies No known active allergies Medications Multiple [...] Office Visit [facility] [address] [place] [phone] Nestor Parham MD Stage 3 chronic kidney disease, not otherwise specified (HCC) (Primary Dx); Hypertension; Persistent proteinuria 07/14/2024 Refill [facility] [address] [address] Rosa Andino Stage 3 chronic [...] Office Visit [facility] [address] [place] [phone] Nestor Parham MD [address] [address] Health Maintenance Due Date Last Done Comments [...] Creatinine, Ur 52.3 Not Estab. mg/dL [facility] Albumin, Urine 75.1 Not Estab. ug/mL [facility] Albumin/Creatin ine Ratio 144(H) 0 - 29 mg/g creat [facility] Comment: ? Normal: ?0 - ??29 ? Moderately increased: 30 - 300 ? Severely increased: ? >300 09/07/2024 10:5 3 AM EDT 09/07/2024 us Nestor Parham MD LAB URINE ORDERABLES Final Resul t [facility] [address] [place] [address] * Vitamin D 25 Hydroxy (09/07/2024 10:53 AM EDT) Vitamin D, 25-OH, Total 40.3 30.0 - 100.0 ng/mL [facility] Comment: Vitamin D deficiency has been defined by the Kiefer of Medicine and an Endocrine Society practice guideline as a level of serum 25-OH vitamin D less than 20 ng/mL (1,2). The Endocrine Society went on to further define vitamin D insufficiency as a level between 21 and 29 ng/mL (2). 1. IOM (Kiefer of Medicine). 2010. Dietary reference ?? intakes for calcium and D. [place]: The ?? National [employer]. 2. Yannick CORBETT, Citlalli AMEZQUITA, Chris DE LA ROSA, et al. ?? Evaluation, treatment, and prevention of vitamin D ?? deficiency: an Endocrine Society clinical practice ?? guideline. JCEM. 2010; 96(7):1911-30. 09/07/2024 10:5 3 AM EDT 09/07/2024 Nestor Parham MD LAB BLOOD ORDERABLES Final Resul t [facility] [address] [place] [address] * (ABNORMAL) PTH, Intact (09/07/2024 10:53 AM EDT) PTH 13(L) 15 - 65 pg/mL [facility] 09/07/2024 10:5 3 AM EDT 09/07/2024 Nestor Parham MD LAB BLOOD ORDERABLES Final Resul t [facility] [address] [place] [address] * (ABNORMAL) Renal Function Panel (09/07/2024 10:53 AM EDT) Glucose 111(H) 70 - 99 mg/dL [facility] BUN 33(H) 8 - 27 mg/dL [facility] Creatinine 1.39(H) 0.76 - 1.27 mg/dL [facility] eGFR CKD-EPI CR 2020 51(L) >59 mL/min/1.7 3 [facility] BUN/Creatinine Ratio 24 10 - 24 [facility] Sodium 142 134 - 144 mmol/L [facility] Potassium 4.2 3.5 - 5.2 mmol/L [facility] Chloride 106 96 - 106 mmol/L [facility] Bicarbonate (CO2) 20 20 - 29 mmol/L [facility] Calcium 9.7 8.6 - 10.2 mg/dL [facility] Albumin 4.4 3.7 - 4.7 g/dL [facility] Phosphorus 3.3 2.8 - 4.1 mg/dL [facility] 09/07/2024 10:5 3 AM EDT 09/07/2024 us Nestor Parham MD LAB BLOOD ORDERABLES Final Resul t [facility] [address] [place] [address] from Last 3 Months Insurance [facility] Care Teams Locomotive Mechanic Relationship Specialty Start Date End Date Orlando Muir MD [address] [place] [address] DR[address] [place], [place] PCP - General 06/25/20
--- OUTSIDE RECORDS SUMMARY | 2024-09-19 18:02 | XMS_ITS | Clinical Summary ---
Author Organization [facility] Address [address] [place] [address] Care Team Providers Care Press Machine Feeder Name Role Phone Orlando Muir MD Primary Care Provider [phone] Social History Tobacco Use Types Packs/Day Years [...] this topic Medical Devices Implanted Type Area Activities Director Device Identifier Shelf Expiration Date Model / Serial / Lot [id number] Lens Iol 0 D +25 Devon +2.25 Cylinder Bcnvx 13mm 6mm - [id number] Implanted:Qty: 1 on 09/18/2020 by [facility] [employer] [id number] .[id number] / [id number] / [id number] Lens Iol 0 D +23.5 Devon Mod L Bcnvx 13mm 6mm Posterior - [id number] Implanted:Qty: 1 on 01/02/2021 by Yohan Huitron MD at [facility] [place] [employer] [id number] .235 / [id number] / Care Teams Press Machine Feeder Relationship Specialty Start Date End Date Orlando Muir MD [address] [place] [address] [place] [address] PCP - General 09/12/20
--- OUTSIDE RECORDS SUMMARY | 2024-09-19 18:02 | XMS_ITS | Encounter Summary ---
Author Organization [facility] Address [address] [place] [phone] Phone Care Team Providers Care Seals Engraver Name Role Phone Orlando Muir MD Primary Care Provider [phone] Reason for Visit * Reason Comments Chronic Kidney Disease Encounter Details Date Type Department Care Team ([facility] st Contact Info) Description 09/14/2024 2:00 PM EDT Office Visit [facility] [address] [place] [address] Nestor Parham MD [address] [phone] Stage 3 chronic kidney disease, [...] EDT [facility] Patient Name: Dom Griffin, Male Date [...] and Americans. Testing performed or reported by [facility], a Service of [facility], [address] [place] [address] Sin Garcia MD, Geodetic Survey Director Est GFR Non Date Value Ref Range [...] ethnic subgroups. Testing performed or reported by [facility], a Service of [facility], [address] [place] [address] Sin Garcia MD, Geodetic Survey Director [facility]# [id number] Chemistry Lab Units 09/07/24 1053 03/17/24 1517 [...] Office Visit [facility] [address] [place] [phone] Nestor Parham MD [address] [phone] Scheduled Orders Name Type Priority Associated Diagnoses Orde r Schedule Renal funtion panel Lab Routine Stage 3 chronic kidney disease, not otherwise specified (HCC) Expected: 09/14/2024, Expires: 10/14/2025 documented as of this encounter Visit Diagnoses Diagnosis Stage 3 chronic kidney disease, not otherwise specified (HCC)- Primary Hypertension Persistent proteinuria documented in this encounter Care Teams Seals Engraver Relationship Specialty Start Date End Date Orlando Miur MD [address] [place], [place] PCP - General 06/25/20 documented as of this encounter
--- OUTSIDE RECORDS SUMMARY | 2024-09-19 18:02 | XMS_ITS | Encounter Summary ---
Author Organization [facility] Address [address] [place] [address] Care Team Providers Care Wader Boot Top Assembler Name Role Phone Orlando Muir MD Primary Care Provider [phone] Encounter Details Date Type Department Care Team (Late st Contact Info) Description 09/13/[address] [facility] [address] [place] [address] [address] [place] [address] Yohan Huitron MD [address] [facility] [address] [place] [address] Encounter for laboratory testing for COVID-19 virus [...] Detected Not Detected 09/13/2020 8:56 PM EDT [facility] Comment: Negative results do not [...] was completed and performance characteristics established by [facility] as per the FDA and CLIA requirement for this EUA. The Aptima SARS-CoV-2 assay Letter of Authorization, along with the authorized Fact Sheet for Healthcare Providers, the authorized Fact Sheet for Patients, and authorized labeling are available on the FDA website: https://www.fda.gov/medical-devices/iqkqugnet-wkxwafczhz-tbqrpaf-devices/emergen - t-itddtdtabsfjdx-gxndqno-devices. Performed at [facility], [place], [place] License 0385 ??CLIA [id number] Source Nasopharyngeal 09/13/2020 8:56 PM EDT [facility] Comment:Performed at [facility], [place], [place] license No. [id number] CLIA No. [id number] Microbiology Nasopharyngeal swab / Unknown 09/13/2020 12:56 PM EDT 09/13/2020 12:56 PM EDT Yohan Huitron MD MICROBIOLOGY - GENER AL ORDERABLES [facility] [address] [place] [address] documented in this encounter Visit Diagnoses Diagnosis Encounter for laboratory testing for COVID-19 virus documented in this encounter Care Teams Wader Boot Top Assembler Relationship Specialty Start Date End Date Orlando Muir MD [address] [place] [address] Dr [place], [place] [address] PCP - General 09/12/20 documented as of this encounter
== END 2024-09-19 16:26 | disposition home or self-care (01) ==
LOC: HO.HMCHD 15:14
PROVIDERS: PCP Internal Medicine; Visit Provider Internal Medicine
DX: I10 Essential (primary) hypertension (principal)

== ENCOUNTER → 2024-11-09 14:45 | Outpatient (REF) | payer MEDICARE, SELFPAY ==
--- NOTE | 2024-11-09 14:48 | CA_ITS ---
Transthoracic Echocardiogram Patient (Last, First, Middle): Dom Griffin A Gender: Male Date of : 1945 Age: 79 Procedure Date: 11/09/2024 Procedure Type: Transthoracic Echocardiogram Location: OP Height: 177.8 cm Weight: 81.65 kg BSA: 2.00 m2 Heart Rate: bpm BP: 136 / 80 mmHg Senior Project Architect: SUGAR Referring MD: Terry Max MD Profiling Machine Setup Operator: Terry Max MD Symptoms: I35.0 - Nonrheumatic aortic (valve) stenosis Study Quality: Adequate ECG Rhythm: Sinus Conclusions: - 1. Normal LV ejection fraction of 65-70% with grade 3 diastolic dysfunction 2. Mildly dilated left atrium 3. Mild aortic stenosis with calcific posterior mitral valve leaflet changes noted 4. No gross pericardial effusion Findings Left Ventricle Normal left ventricular size, thickness, and systolic function. The visually estimated ejection fraction is between 65-70%. Spectral Doppler is indicative of a restrictive filling pattern. E/E prime ratio is >15, consistent with elevated filling pressures. Evidence suggests grade III (severe) diastolic dysfunction. Right Ventricle Normal right ventricular cavity size and systolic function. Atria The left atrium is mildly dilated. There is no evidence of interatrial shunt. The right atrium is normal in size. Aortic Valve There is moderate calcification of the aortic valve. There is mild aortic valve stenosis. The peak aortic gradient is 22 mmHg.The mean gradient is 12 mmHg. The aortic valve area is 1.76 cm2. There is no aortic valve regurgitation. Mitral Valve There is mild anterior and moderate posterior mitral leaflet thickening. The posterior mitral leaflet has restricted mobility. There is mild mitral annular calcification. There is trace mitral valve regurgitation. There is no mitral valve stenosis. Pulmonic Valve The pulmonic valve is likely normal. There is trace pulmonic valve regurgitation. Tricuspid Valve Likely normal tricuspid valve structure and function. Tricuspid regurgitation envelope is inadequate for calculation of right ventricular systolic pressure. Normal right atrial pressure. Great Vessels All visible segments of the aorta are normal in size. The pulmonary artery was not well visualized. There is no dilatation of the ascending aorta measuring 3.40 cm. Venous The inferior vena cava is normal in size and collapses greater than 50% with inspiration. Pericardium/Pleural There is no evidence of pericardial effusion. Prior Study Comparison Changes noted compared to prior study dated: 09/17/2022. LV ejection fraction has improved Measurements 2D Linear Measurements IVSd: 0.90 0.6-0.9/0.6-1.0 cm LVIDd: 4.96 3.9-5.3/4.2-5.9 cm LVIDd Index: 2.48 2.4-3.2/2.2-3.1 cm/m2 LVIDs: 3.14 2.0-3.6 cm LVPWd: 0.92 0.7-1.1 cm LA Diam: 3.60 2.7-3.8/3.0-4.0 cm LAIDs Index: 1.80 1.5-2.3 cm/m2 LV Mass: 196.65 67-162/88-224 g LV Mass Index: 98.33 43-95/49-115 g/m2 LVOT Diam: 2.00 3.0+(-)1.3 cm 2D Systolic Function EF 4C: 68.20 >55% EF 2C: 63.50 >55% EF BiP: 66.80 >55% Mitral Valve MV Pk E: 1.28 MV PK A: 0.87 MV Decel Time: 189.00 E/A: 1.50 E'Lateral: 7.94 E'Medial: 5.87 E/E' Med: 21.80 E/E' Lat: 16.10 PHT: 56.00 MVA PHT: 3.93 Decel [place]: 6.73 Aortic Valve AoV Pk Juve: 2.34 AoV Mn Juve: 1.59 AoV VTI: 0.59 AoV Pk Grad: 22.00 Aov Mn Grad: 12.00 CESAR Cont.VTI: 1.76 LVOT LVOT Pk Juve: 1.33 LVOT Mn Juve: 0.82 LVOT VTI: 0.33 LVOT Pk Grad: 7.00 LVOT Mn Grad: 3.00 LVOT Diam: 2.00 LVOT Area: 3.14 Diastolic Function MV Pk E: 1.28 MV Pk A: 0.87 E/A: 1.50 E'Medial: 5.87 E/E' Med: 21.80 E' Laterial: 7.94 E/E' Lat: 16.10 Right Ventricle TAPSE (mm): 3.00 TVS' Juve: 13.30 Tricuspid Valve RA Press: 3.00 Great Vessels Aorta Sinus of Valsalva: 3.22 2.0-3.[address] [place]: 2.69 1.7-3.4 cm Ao Asc: 3.40 2.1-3.4 cm Updated in Other Vendor System with Status of Final Terry Max MD electronically signed on 11/10/2024 8:19:44 AM with status of Final
--- OUTSIDE RECORDS SUMMARY | 2024-11-09 15:32 | XMS_ITS | Encounter Summary ---
Author Organization [facility] Address [address] [place] [address] Care Team Providers Care Child Center Assistant Name Role Phone Orlando Muir MD Primary Care Provider [phone] Encounter Details Date Type Department Care Team (Late st Contact Info) Description 09/13/[address] [facility] [address] [facility] [address] [place] [address] [address] [place] [address] Yohan Huitron MD [address] [place] [address] Encounter for laboratory testing for COVID-19 virus Social History Tobacco Use Types Packs/Day Years Used Date Smoking Tobacco: Never Assessed Sex and Gender Information Value Date Recorded Sex Assigned at Not on file Legal Sex Male 6:25 PM EST Gender Identity Not on file [...] Detected Not Detected 09/13/2020 8:56 PM EDT [facility] Comment: Negative results do [...] was completed and performance characteristics established by [facility] as per the FDA and CLIA requirement for this EUA. The Aptima SARS-CoV-2 assay Letter of Authorization, along with the authorized Fact Sheet for Healthcare Providers, the authorized Fact Sheet for Patients, and authorized labeling are available on the FDA website: https://www.fda.gov/medical-devices/lfwmjdnrh-mqaapnfznk-fquwzhq-devices/emergen - q-pngjhtwivfrbcy-htyjjmi-devices. Performed at [facility], [place], [place] License 0385 ??CLIA [id number] Source Nasopharyngeal 09/13/2020 8:56 PM EDT [facility] Comment:Performed at [facility], [place] license No. [id number] CLIA No. [id number] Microbiology Nasopharyngeal swab / Unknown 09/13/2020 12:56 PM EDT 09/13/2020 12:56 PM EDT us Yohan Huitron MD MICROBIOLOGY - GENERAL ORDERA BLES Final Result [facility] [address] [place] [address] documented in this encounter Visit Diagnoses Diagnosis Encounter for laboratory testing for COVID-19 virus documented in this encounter Care Teams Child Center Assistant Relationship Specialty Start Date End Date Orlando Muir MD [address] [place] [address] Dr [place]O [id number] PCP - General 09/12/20 documented as of this encounter
== END ==
LOC: HO.CARD 14:45
PROVIDERS: PCP Internal Medicine; Visit Provider Internal Medicine Cardiovascular Disease
DX: I35.0 Nonrheumatic aortic (valve) stenosis (principal)
CPT/HCPCS: 93306

== ENCOUNTER → 2024-11-09 14:48 | Outpatient (BNV) | payer MEDICARE, SELFPAY | PROVIDERS: PCP Internal Medicine; Visit Provider Internal Medicine Cardiovascular Disease | DX: I50.30 Unspecified diastolic (congestive) heart failure (principal); I35.0 Nonrheumatic aortic (valve) stenosis; I34.0 Nonrheumatic mitral (valve) insufficiency; I34.89 Other nonrheumatic mitral valve disorders | CPT/HCPCS: 93306 ==

== ENCOUNTER 2025-04-05 14:57 | Outpatient (AMB) | payer MEDICARE, SELFPAY ==
--- NOTE | 2025-04-05 14:50 | MHC.PC.OV ---
Vital Signs 04/05/25 15:13 04/05/25 15:34 Height 5 ft 8.46 in Weight 80.739 kg BMI 26.7 BP 150/80 H 136/66 Blood Pressure Location Lt brachial Position Sitting Respiration 18 Pulse 58 Pulse Source Pulse Oximeter Temp 97.6 F Temp Source Temporal Artery Scan Pulse Oximetry (%) 98 Oxygen Delivery Method Room Air Intake Visit Reasons: routine Machine Technician Required: No Accompanied by: Self / Same As Patient Allergies No Known Allergies Allergy (Verified 04/05/25 14:51) Tobacco use date assessed: 09/19/24 Dental Screening Dental Screen Date: 09/19/24 HPI HPI Comments History of Present Illness Details 79-year-old male with history of hypertension, aortic stenosis, paroxysmal atrial fibrillation, peripheral vascular disease, presenting to the office today for management of chronic conditions and to establish care. Paroxysmal atrial fibrillation/CAD/PVD-s/p cardioversion 2022. S/p stenting of the left carotid artery. Following with [facility] and [facility] cardiovascular. On Xarelto for anticoagulation, Toprol 100 mg for rate control. Also taking Farxiga, losartan 50 mg daily, rosuvastatin 40 mg nightly. CKD stage 3-last GFR 48. Follows with Dr. Parham at [facility] Follows with derm for skin checks Concerns: None ROS: see hpi EXAM: Constitutional - Awake and Alert, No apparent distress Eyes - PERRL Cardiovascular - S1S2, RRR, No edema Respiratory - Normal lung expansion, Normal respiratory effort, No respiratory distress, CTA bilaterally Extremities - no calf tenderness bilaterally, no swelling Skin - Warm/Dry Neurological - Alert & oriented x3 Psychological - Appropriate affect [facility] Medical History (Updated 04/07/25 @ 10:48 by TRISTAN Stevenson) Paroxysmal atrial fibrillation Persistent atrial fibrillation Hyperlipidemia Peripheral vascular disease HTN (hypertension) Lyme disease Surgical History (Updated 10/11/24 @ 10:41 by Abigail Phillips) History of appendectomy History of lumbar laminectomy History of cervical discectomy H/O colonoscopy (~11/11/16) S/p bilateral carotid endarterectomy Family History Father No problems noted. Mother No problems noted. Social History Housing: House Are you a primary outdoor emergency care technician to a significant other at home: No Do you presently have visiting nurse or other home services: No Alcohol intake: never Patient Tobacco Use Status: Former Tobacco user Tobacco use type: Cigarette e-Cigarette/Vaping Use: Former Use service: No Current occupational status: retired Cognitive needs: No Hearing needs: No Vision needs: Yes (rx glasses) Questionnaire Thrive Questionnaire Date Thrive assessed: 09/19/24 SARA-7 AMB Questionnaire SARA-7 Date SARA - 7 assessed: 09/19/24 Source: Developed by Drs. Edward Martin, Radha Herrera, Edgar Villa and colleagues, with an educational matteo from [employer]. Physical exam (Primary Care) Vital Signs: Last Vital Signs Temp 97.6 F 04/05/25 15:13 Pulse 58 04/05/25 15:13 Resp 18 04/05/25 15:13 BP 136/66 04/05/25 15:34 Pulse Ox 98 04/05/25 15:13 Oxygen Delivery Method Room Air 04/05/25 15:13 BMI result Body Mass Index 26.7 Tobacco/Smoking Status: Tobacco use Status Tobacco use date assessed 09/19/24 04/05/25 14:53 Patient Tobacco Use Status Former Tobacco user 04/05/25 14:53 Tobacco use type Cigarette 04/05/25 14:53 e-Cigarette/Vaping Use Former Use 04/05/25 14:53 Thrive Assessment: Date of Thrive Assessment Date Thrive assessed 09/19/24 04/05/25 14:53 Coding Level of Care Code Est Pt Level 4 (42060) Complex EM visit Add On G2211 Diagnoses HTN (hypertension) I10 Paroxysmal atrial fibrillation I48.0 Peripheral vascular disease I73.9 Assessment & Plan Assessment & Plan (1) HTN (hypertension): Code(s): I10 - Essential (primary) hypertension Category: Medical Plan: Controlled. Continue losartan, Toprol (2) Paroxysmal atrial fibrillation: Code(s): I48.0 - Paroxysmal atrial fibrillation Category: Medical Plan: Rate controlled. Continue Xarelto for anticoagulation, Toprol for rate control (3) Peripheral vascular disease: Code(s): I73.9 - Peripheral vascular disease, unspecified Category: Medical Plan: Stable. Not on antiplatelet regimen. Follow-up with [facility] cardiovascular as scheduled Plan Follow-up in the office in six months with labs completed prior to visit. Last echocardiogram and cardiology notes reviewed Orders: Orders Basic Metabolic Panel 6 Months I10 - Essential (primary) hypertension, I35.0 - Nonrheumatic aortic (valve) stenosis, I48.0 - Paroxysmal atrial fibrillation Lipid Panel 6 Months I10 - Essential (primary) hypertension, I35.0 - Nonrheumatic aortic (valve) stenosis, I48.0 - Paroxysmal atrial fibrillation Complete Blood Count Auto Diff 6 Months I10 - Essential (primary) hypertension, I35.0 - Nonrheumatic aortic (valve) stenosis, I48.0 - Paroxysmal atrial fibrillation Liver Panel 6 Months I10 - Essential (primary) hypertension, I35.0 - Nonrheumatic aortic (valve) stenosis, I48.0 - Paroxysmal atrial fibrillation Medications: New metoprolol succinate ER 100 mg PO QPM 90 tabs 1RF
[2025-04-05 15:13] VITALS: BP 150/80; PULSE 58; RESP 18; TEMP 36.4; O2SAT 98; BMI 26.7
[2025-04-05 15:34] VITALS: BP 136/66
--- OUTSIDE RECORDS SUMMARY | 2025-04-05 21:11 | XMS_ITS | Patient Health Record ---
Author Organization [facility] Address [address] [place] [address] Care Team Providers Care [id number] Android Developer Name Role Phone Arti Gray DO Primary Care Provider Edward Chaney [phone] Reason For Referral No Information Medications Medication SIG (Take, Route, Frequency, Duration) Notes Start Date End Date Status Crestor 40 MG 1 tablet Orally Once a day Active Metoprolol Succinate ER 100 MG 1 tablet Orally Once a day Active Lisinopril 20 MG 1 tablet Orally Once a day Active Multi Vitamin/Minerals 1 1 Orally qd Active Aspir-81 81 MG 1 tablet Orally Once a day Active Fish Oil 1200 MG 1 capsule Orally Onc e a day Active hydroCHLOROthiazide 12.5 MG 1 tablet Ora lly Once a day Active Immunizations Vaccine Route Administration Date Status Comme nts Flu vaccine no Preserv 3 and > Unknown 03/27/2015 Admin istered Influenza Unknown 04/15/2016 Administered Problems Problem Type SNOMED Code ICD Code Onset Dates Problem Status W/U Status Risk Notes Problem Screening for malignant neoplasm of colon (313867002) Encounter for screening for malignant neoplasm of colon (Z12.11) Active confirmed Problem History of adenomatous polyp of colon (692156509) History of adenomatous polyp of colon (Z86.010) Active confirmed Problem Abdominal bloating (906189364) Abdominal bloating (R14.0) Active confirmed Problem Screening for malignant neoplasm of rectum (930887337) Encounter for screening for malignant neoplasm of rectum (Z12.12) Active confirmed Problem Long-term current use of antiplatelet drug (130700559066107 ) Long-term use of aspirin therapy (Z79.82) Active confirmed Problem Irregular bowel habits (250457492) Irregular bowel habits (R19.8) Active confirmed Plan Of Treatment Pending Test Test Name Order Date GI BIOPSY 11/11/2016 Future Test Test Name Order Date COLONOSCOPY 12/26/2015 COLONOSCOPY 07/22/2016 Insurance Providers Payer Name Payer Address Payer Phone Subscriber Number Group Number Insured Name Patient Relationship to Insured Coverage Start Date Coverage End Date MEDICARE OF [place] [address] [place]T [id number] RAMONA LOPEZ Self - patient is the insured [employer] ATT[employer] CLAIMS [address] [place] [address] [id number] RAMONA LOPEZ Self - patient is the insured Medical (General) History Medical History History ICD Code Screening colonoscopy 007--hyperplastic polyp, diverticulosis, internal hemoorhoids Hypertension Hyperlipidemia Denies [place],DM,Lung disease,renal disease Stroke 2009--temporary LUE weakness Colonoscopy in 04/2016---sma ll adenoma at 20cm only partially removed--it appeared to be an inflammatory polyp in an area of sigmoid diverticulosis and was only biopsied, but not removed completely gven it's appearance Surgical History Surgery Date(Month/Year) Left and right carotid endar tectomy--had a 2nd procedure for a left carotid artery stent Appendectomy Carpal tunnel release on the left Spinal stenosis surgery
--- OUTSIDE RECORDS SUMMARY | 2025-04-05 21:11 | XMS_ITS | Clinical Summary ---
Author Organization [facility] Address [address] [place] [address] Care Team Providers Care Informatics Spec Name Role Phone Orlando Muir MD Primary Care Provider [phone] Social History Tobacco Use Types Packs/Day Years Used Date Smoking Tobacco: Never Assessed Sex and Gender Information Value Date Recorded Sex Assigned at Not on file Legal Sex Male 6:25 PM EST Gender Identity Not on file Sexual Orientation Not on file Plan of Treatment Health Maintenance Due Date Last Done Comments Advance Care Planning 1945 DTaP/Tdap/Td Vaccines (1 - Tdap) 1962 Pneumococcal Vaccines 50+ (1 of 1 - PCV) 1993 Zoster (Shingles) Vaccine (1 of 2) 1993 RSV Vaccine 50 years and old er and Patients (1 - 1-dose 75+ series) 2018 Influenza Vaccine 01/13/2025 COVID-19 Vaccine ( - 2023-2 5 season) 2025 Hepatitis B Vaccines Aged Out No long er eligible based on patient's age to complete this topic Medical Devices Implanted Type Area Data Processing Equipment Repairer Device Identifier Shelf Expiration Date Model / Serial / Lot [id number] Lens Iol 0 D +25 Devon +2.25 Cylinder Bcnvx 13mm 6mm - [id number] Implanted:Qty: 1 on 09/18/2020 by Yohan Huitron MD at [facility] [place] [employer] [id number] .[id number] / [id number] / [id number] Lens Iol 0 D +23.5 Devon Mod L Bcnvx 13mm 6mm Posterior - [id number] Implanted:Qty: 1 on 01/02/2021 by Yohan Huitron MD at [facility] [place] [employer] [id number] .[id number] / [id number] / Insurance MEDICARE PART A & B [facility] Care Teams Informatics Spec Relationship Specialty Start Date End Date Orlando Muir MD [address] [place] [address] [place] [address] PCP - General 09/12/20
--- OUTSIDE RECORDS SUMMARY | 2025-04-05 21:11 | XMS_ITS | Encounter Summary ---
Author Organization [facility] Address [address] [place] [address] Care Team Providers Care Horseradish Grinder Name Role Phone Orlando Muir MD Primary Care Provider [phone] Encounter Details Date Type Department Care Team (Late st Contact Info) Description 09/13/2020 Lab Requisition [facility] [address] Through [address] [place] [address] [address] [place] [address] Yohan Huitron MD [address] [place] [address] Encounter for laboratory testing for COVID-19 virus [...] Detected Not Detected 09/13/2020 8:56 PM EDT [facility] Comment: Negative results [...] (FDA) under an Emergency Use Authorization (EUA). Validation was completed and performance characteristics established by [facility] as per the FDA and CLIA requirement for this EUA. The Aptima SARS-CoV-2 assay Letter of Authorization, along with the authorized Fact Sheet for Healthcare Providers, the authorized Fact Sheet for Patients, and authorized labeling are available on the FDA website: https://www.fda.gov/medical-devices/nywfhkxux-iyqvcosciw-zxwvxsl-devices/emergen - y-jiyhndwjbnhwtc-jgsspkx-devices. Performed at [facility], [place], [place] License 0385 CLIA [id number] Source Nasopharyngeal 09/13/2020 8:56 PM EDT [facility] Comment:Performed at [facility], [facility], [place] license No. [id number] CLIA No. [id number] Microbiology Nasopharyngeal swab / Unknown 09/13/2020 12:56 PM EDT 09/13/2020 12:56 PM EDT us Yohan Huitron MD MICROBIOLOGY - GENERAL ORDERA BLES Final Result [facility] [address] [place] [address] documented in this encounter Visit Diagnoses Diagnosis Encounter for laboratory testing for COVID-19 virus documented in this encounter Care Teams Horseradish Grinder Relationship Specialty Start Date End Date Orlando Muir MD [address] [place] [address] [place] [address] PCP - General 09/12/20 documented as of this encounter
== END 2025-04-05 15:41 | disposition home or self-care (01) ==
PROVIDERS: PCP Student in an Organized Health Care Education/Training Program; Visit Provider Physician Assistant
DX: I10 Essential (primary) hypertension (principal); I48.0 Paroxysmal atrial fibrillation; I73.9 Peripheral vascular disease, unspecified

== ENCOUNTER → 2025-04-05 14:57 | Outpatient (BNVA) | payer MEDICARE, SELFPAY | PROVIDERS: PCP Internal Medicine; Visit Provider Physician Assistant | DX: I12.9 Hypertensive chronic kidney disease with stage 1 through stage 4 chronic kidney disease, or unspecified chronic kidney disease (principal); N18.30 Chronic kidney disease, stage 3 unspecified; I48.0 Paroxysmal atrial fibrillation; I73.9 Peripheral vascular disease, unspecified; Z79.01 Long term (current) use of anticoagulants; Z79.899 Other long term (current) drug therapy | CPT/HCPCS: 99212 ==